=== PATIENT | male | born 1960 | race Caucasian/White ===

== ENCOUNTER → 2016-09-05 | Outpatient (CLI) | payer OTHER ==
[2016-09-05 15:22] LABS: Aty Lym Flag Moderate; CH 30.2; CHCM 31.4; HCT 44.9 % (39.0-53.0); HDW 2.49; HGB 13.8 gm/dL (13.0-17.5); Hypochromasia Slight; MCH 29.9 pg (25.0-35.0); MCHC 30.8 g/dL (31.0-37.0); Mean Platelet Volume 8.4; RBC 4.63 m/uL (4.30-5.90); RDW 14.5 % (11.5-15.5); WBC 6.3 k/uL (3.8-10.6); WBC (Perox) 6.32
[2016-09-05 15:24] LABS: Appearance,Urine Clear (Clear); Bacteria,Urine Rare /hpf; Bilirubin,Urine Negative (Negative); Glucose,Urine (UA) Negative (Negative); Ketones,Urine Negative (Negative); Leukocyte Esterase,Urine Negative (Negative); Mucus,Urine Many /hpf; Nitrite,Urine Negative (Negative); PH, Urine 5.5 (5.0-8.0); Particle Count 8917; Protein,Urine 1+ (Negative); RBC,Urine 1 /hpf (0-5); Specific Gravity,Urine 1.018 (1.001-1.035); UA Billing (MACRO vs. MICRO) MICRO; WBC,Urine 2 /hpf (0-5)
[2016-09-05 16:49] LABS: Add Differential Manual Differential
[2016-09-05 16:51] LABS: Large Platelets Present; Manual Review Performed; Nucleated Red Blood Cells 0 /100 WBC (0-0)
[2016-09-05 16:52] LABS: Polychromasia Present; Toxic Granulation Present
[2016-09-05 16:56] LABS: Total Cells Counted 200
[2016-09-06 07:52] LABS: Mis test requested (Non-blood) TP Urine Random
== END ==
LOC: LABWHC1 14:45
PROVIDERS: ATTEND Internal Medicine
DX: N39.0 Urinary tract infection, site not specified (principal); J11.1 Influenza due to unidentified influenza virus with other respiratory manifestations
CPT/HCPCS: 36415; 81001; 82570; 84153; 84156; 85025; 87086; 87502

== ENCOUNTER → 2016-09-09 | Outpatient (CLI) | payer OTHER ==
[2016-09-09 09:56] LABS: INR 1.1 (<1.1); Partial Thromboplastin Time 24.4 sec (22.0-30.0); Prothrombin Time 11.5 sec (9.0-12.0)
[2016-09-09 10:07] LABS: Aty Lym Flag Slight; CH 29.6; CHCM 31.4; HCT 47.6 % (39.0-53.0); HDW 2.37; HGB 14.8 gm/dL (13.0-17.5); MCH 29.5 pg (25.0-35.0); MCHC 31.1 g/dL (31.0-37.0); MCV 94.8 fL (80.0-100.0); RBC 5.02 m/uL (4.30-5.90); RDW 14.1 % (11.5-15.5); WBC 7.2 k/uL (3.8-10.6); WBC (Perox) 7.22
[2016-09-09 10:24] LABS: Bilirubin, Delta 0.5 mg/dL (0.0-0.2); Total Protein 6.6 g/dL (6.3-8.2)
[2016-09-09 11:54] LABS: Add Differential Manual Differential
[2016-09-09 11:56] LABS: Nucleated Red Blood Cells 0 /100 WBC (0-0); Total Cells Counted 100
== END | disposition home or self-care (01) ==
LOC: LABWHC1 08:50
PROVIDERS: ATTEND Internal Medicine
DX: K75.9 Inflammatory liver disease, unspecified (principal); D69.6 Thrombocytopenia, unspecified; R79.89 Other specified abnormal findings of blood chemistry
CPT/HCPCS: 36415; 80076; 82977; 85025; 85610; 85730

== ENCOUNTER → 2021-09-13 | Outpatient (CLI) | payer OTHER ==
--- NOTE | 2021-09-14 07:01 | MR ---
EXAMINATION TYPE: MR lumbar spine wo con DATE OF EXAM: 09/13/2021 COMPARISON: Outside MR spine MRI April 29, 2017 HISTORY: Low back pain for years. TECHNIQUE: Multiplanar, multisequence imaging of the lumbar spine is performed without IV contrast. FINDINGS: Sagittal images of the lumbar spine show vertebral body heights and alignment to remain sat isfactory. Multilevel disc desiccation redemonstrated. Advanced disc space narrowing L4-L5 level wit h vacuum disc phenomenon again seen. Moderate to advanced disc space narrowing L5-S1 level with vacuu m disc phenomenon redemonstrated The conus medullaris is normal in position and signal ending at T12- L1 level. 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 Moderat e multilevel anterior spurring with heterogeneity again seen. Axial images at T12-L1 level redemonstrate mild to moderate broad disc bulge mildly effacing the ante rior thecal sac, patent bilateral neural foramina. Axial images at L1-L2 level redemonstrate mild broad disc bulge minimally effacing the anterior theca l sac. Axial images at L2-L3 level show mild to moderate broad disc bulge with left foraminal disc protrusio n component. There is mild effacement of the anterior thecal sac. There is mild left greater than rig ht anterior inferior neural foraminal narrowing redemonstrated. Axial images at the L3-L4 level demonstrates mild facet degenerative changes bilaterally. There is mi [id number] broad disc bulge with left foraminal disc protrusion component redemonstrated. There i s mild to moderate left greater than right anterior inferior neural foraminal narrowing again seen. N o significant change from prior. Axial images at the L4-L5 level show moderate to advanced broad disc bulge with left lateral disc pro trusion component. There is effacement of the anterior thecal sac. Mild facet arthropathy bilaterally . There is mild to moderate left greater than right anterior inferior neural foraminal narrowing rede monstrated. Axial images at the L5-S1 level redemonstrated mild facet arthropathy bilaterally. There is focal umer tral disc protrusion. There is moderate bilateral neural foraminal narrowing encroaching along the in ferior aspect of the bilateral L5 nerves in the foramen seen on sagittal image 17 on the right and 6 on the left. This has a similar appearance to prior study. IMPRESSION: Multilevel degenerative changes in lumbar spine as detailed above. Encroachment on forami nal L5 nerve bilaterally at L5-S1 level is again seen. No significant change or degenerative progress ion from prior outside MRI.
== END | disposition home or self-care (01) ==
LOC: RADMRIMAIN 15:25
PROVIDERS: ATTEND Psychiatry & Neurology Neurology
DX: M47.816 Spondylosis without myelopathy or radiculopathy, lumbar region (principal); M51.26 Other intervertebral disc displacement, lumbar region
CPT/HCPCS: 72148

== ENCOUNTER 2021-10-12 12:17 | Emergency (ER) | payer OTHER ==
[2021-10-12 12:40] VITALS: PULSE 61; RESP 18; TEMP 98.1
[2021-10-12] MEDS ORDERED: BEBTELOVIMAB (EUA) 175 MG/2 ML VIAL IV ONE (13:15)
--- NOTE | 2021-10-12 13:22 | ED ---
General Adult HPI - General Chief complaint: Recheck/Abnormal Lab/Rx Stated complaint: covid+/wants antibodies Time Seen by Provider: 10/12/21 12:42 Source: patient, RN notes reviewed, old records reviewed Mode of arrival: wheelchair Limitations: no limitations - History of Present Illness Initial comments: 61-year-old male presenting for evaluation of cough and cold symptoms. Patient tested positive for coronavirus today. He has had about 6 days of symptoms including mild stomach upset, cough congestion. His has similar symptoms and also tested positive for coronavirus. He denies significant dyspnea. He's had a poor appetite. - Related Data Home Medications Medication Instructions Recorded Confirmed Metoprolol Tartrate [Lopressor] 25 mg PO BID 08/31/14 09/02/14 Allergies Allergy/AdvReac Type Severity Reaction Status Date / Time No Known Allergies Allergy Verified 10/12/21 12:40 Review of Systems ROS Statement: Those systems with pertinent positive or pertinent negative responses have been documented in the HPI. ROS Other: All systems not noted in ROS Statement are negative. Past Medical History Past Medical History: Hypertension History of Any Multi-Drug Resistant Organisms: None Reported Past Surgical History: Orthopedic Surgery Additional Past Surgical History / Comment(s): leg surgery Past Psychological History: Anxiety Smoking Status: Current every day smoker Past Alcohol Use History: Abuse, Daily Past Drug Use History: Marijuana General Exam Limitations: no limitations General appearance: alert, in no apparent distress Head exam: Present: atraumatic, normocephalic Eye exam: Present: normal appearance, PERRL ENT exam: Present: normal exam Neck exam: Present: normal inspection. Absent: tenderness, meningismus Respiratory exam: Present: normal lung sounds bilaterally. Absent: respiratory distress, wheezes, rales, rhonchi Cardiovascular Exam: Present: regular rate, normal rhythm GI/Abdominal exam: Present: soft. Absent: distended, tenderness, guarding Extremities exam: Present: normal inspection, normal capillary refill. Absent: pedal edema, calf tenderness Neurological exam: Present: alert, oriented X3, CN II-XII intact. Absent: motor sensory deficit Psychiatric exam: Present: normal affect, normal mood Skin exam: Present: warm, dry, intact. Absent: cyanosis, diaphoretic Course Vital Signs 10/12/21 12:35 Temperature 98.1 F Pulse Rate 61 Respiratory 18 Rate Blood Pressure 98/53 O2 Sat by Pulse 99 Oximetry Medical Decision Making - Medical Decision Making 61-year-old male with coronavirus. To previous vaccines. He is well-appearing with stable vitals. No respiratory distress. He does meet for monoclonal antibody infusion. These are administered in the emergency department. Patient will take vitamin C, vitamin D, zinc. He will follow with his primary care physician. Disposition Clinical Impression: COVID-19 Disposition: HOME SELF-CARE Condition: Fair Instructions (If sedation given, give patient instructions): COVID-19 (Coronavirus Disease 2019) (ED) Is patient prescribed a controlled substance at d/c from ED?: No Referrals: Teo Garbiay MD [Primary Care Provider] - 1-2 days Time of Disposition: 14:10
[2021-10-12 14:40] VITALS: BP 126/74
== END 2021-10-12 15:50 | disposition home or self-care (01) ==
LOC: EC 12:17
DX: U07.1 COVID-19 (principal); F17.200 Nicotine dependence, unspecified, uncomplicated; F12.90 Cannabis use, unspecified, uncomplicated; Z79.899 Other long term (current) drug therapy
CPT/HCPCS: 87635; 99283; Q0222

== ENCOUNTER → 2022-03-18 | Outpatient (CLI) | payer OTHER ==
[2022-03-18 12:57] VITALS: BP 114/72; PULSE 73; RESP 18; TEMP 98.3
--- NOTE | 2022-03-18 14:23 | P.PAINPG ---
PQRS Measure Charge Sheet Comment: HISTORY OF PRESENT ILLNESS: 61 yr old male as a referral from [facility] presents today w severe and chronic LBP secondary to DDD, spondylosis and facet arthropathy without myelopathy for evaluation. Pt states his pain level is currently at 8/10 in intensity, constant, localized in lower lumbar spine, achy in character w radiation towards L glute. Pt states pain is provoked with standing/ walking for periods of 30 min or more, bending & lifting. Pain is alleviated w PT in 3 weeks currently which reduces pain intermittently, heating pad use, meds (Cull[place] 10/325mg), PMH: Hypertension, Anxiety PSH: Hip & Leg Surgery, Cardiac Cath (2014) SH: Daily tobacco use, +Cannabis use, Hx of ETOH abuse. FH: Non contributory All: NKDA Meds: See list REVIEW OF ORGAN SYSTEMS: CONSTITUTIONAL: No fevers or chills. No recent weight loss. NEUROLOGICAL: + numbness and tingling along the distal extremities. No seizure disorders or headaches. MUSCULOSKELETAL: + pain PSYCHIATRIC: Denies current depression or suicidal thought s. Physical Examinations : Constitutional : Cooperative , not in acute distress . Neurologic : Cranial nerve II to XII intact. No focal neurological deficits. Psychiatric : alert & oriented x 3. Matching mood & appropriate affect. Judgment & insight intact. Musculoskeletal : Cervical Spine Motor strength in the deltoid and biceps: Normal right side. Normal Left side Motor strength biceps and the wrist extensors: Normal right side . Normal left side Motor strength in the triceps muscle: Normal right side. Normal left side Deep tendon reflexes: Normal at the biceps. Normal at Brachioradialis. Normal at triceps Vertebral body tenderness to deep palpation over Cervical facet loading test: positive bilaterally Spurling test: positive bilaterally Neck distraction test: positive bilaterally Jose sign: positive bilaterally Lumbar spine Motor strength lower extremities ,thigh and legs 5/5 Right side , 5/5 Left side Deep tendon reflexes : Normal Knee Jerk. Normal Ankle Jerk Vertebral body tenderness over L5 Lumbar facet Loading Test: positive Right / positive Left Range of motion of the lumbar spine Flexion 30 degrees, extension 10 degrees Straight Leg Raise test: Left/ Right positive at degree Luis Manuel test: positive right / positive left. Severe tenderness over the Sacroiliac joint on the Right / Left sides Gaenslen test: positive bilaterally Seated flexion test: positive bilaterally. Sacral spine : Severe tenderness over the Sacroiliac joint: right side / left side Range of motion: Flexion of the lumbar spine <60 degrees Range of motion: Extension of the lumbar spine <20 degrees Gaenslen's Test positive Rafael's Test positive Luis Manuel test: positive right side / left side Thigh Thrust Test Sacral Thrust Test Imaging: MRI without contrast of the lumbar spine from 09/13/21 reviewed Assessment/ Plan : Lumbar DDD, Lumbar spondylosis Recommendation of RAMIREZ L5-S1. May need a series, up to 3 within a 6 mo period, for optimal pain relief. Risks, benefits of procedure discussed and patient verbalized understanding. Denies aspirin or anti- coagulant use or medical history of diabetes. Protocol for discontinuation/ continuation of medications lana procedure discussed. All questions answered. I have spent greater than 30 minutes on patient care today. Dr More was available by phone for the evaluation of this patient. The time was used to review the medical records including relevant urine studies and Prescription history (MAPs), review of the available imaging, evaluation and examination of the patient, coordination of care with the medical staff and if applicable referring physicians, as well as creation of the medical record Home Medications: Ambulatory Orders Metoprolol Tartrate [Lopressor] 25 mg PO BID 08/31/14 Controlled Substance Measures - Controlled Substance Measures Is patient prescribed a controlled substance at discharge?: No
== END ==
LOC: PNWHC3 11:57
PROVIDERS: ATTEND Specialist
DX: M51.36 Other intervertebral disc degeneration, lumbar region (principal); M47.816 Spondylosis without myelopathy or radiculopathy, lumbar region; I10 Essential (primary) hypertension; F41.9 Anxiety disorder, unspecified; F17.200 Nicotine dependence, unspecified, uncomplicated
CPT/HCPCS: 99211

== ENCOUNTER 2022-04-18 12:50 | Day surgery (SDC) | payer OTHER ==
[2022-04-17 09:29] VITALS: BMI 29.2
[2022-04-18 13:45] VITALS: RESP 18; TEMP 98.6
[2022-04-18] MEDS ORDERED: LACTATED RINGERS 1,000 ML IV ONE (13:45)
[2022-04-18] MEDS ORDERED: IV FLUID CONTINUATION 1,000 ML IV ONE (13:45)
[2022-04-18] MEDS ORDERED: MIDAZOLAM 2 MG/2 ML VIAL ONE (13:47)
[2022-04-18] MEDS ORDERED: methylPREDNISolone ACETATE 80 MG/ML 1 ML VIAL ONE (13:47)
[2022-04-18] MEDS ORDERED: IOPAMIDOL M200 10 ML VIAL ONE (13:47)
[2022-04-18] MEDS ORDERED: fentaNYL (PF) 50 MCG/ML 2 ML AMP ONE (13:47)
[2022-04-18] MEDS ORDERED: LIDOCAINE 1% (10MG/ML) FOR IV START INTRADERMA PRN (13:55)
--- NOTE | 2022-04-18 13:56 | P.PCN ---
Date of Procedure: 04/18/22 Procedure(s) Performed: PREOPERATIVE DIAGNOSIS: 1- Lumbar Degenerative Disc Diseases 2-Lumbar spondylosis with Facet arthropathy without myelopath POSTOPERATIVE DIAGNOSIS: Same as preop diagnosis. PROCEDURE 1. Lumbar epidural steroid injection under fluoroscopic guidance at the L5-S1 level. (Fluoroscopy imaging was available in radiology department) 2. Lumbar epidurogram. ANESTHESIA: moderate sedation with intravenous Versed 2 mg ,and fentanyle 100 Mcg Sedation start time : 13:49 Sedation end time : 13:54 EBL: Minimal PROCEDURE INDICATION: The patient with low back pain and radiculitis symptoms unresponsive to conservative treatment. Fluoroscopy was used to optimize visualization of the needle placement and to maximize safety. PROCEDURE DESCRIPTION / TECHNIQUE: The patient was seen and identified in the preoperative area. Risks, benefits, complications including but not limited to infections ,bleeding ,allergic reaction to the medications ,nerve damage and not complete pain releife , and a lternatives were discussed with the patient. The patient agreed to proceed with the procedure and signed the consent. IV was started, and vital signs were stable. Patient was taken to the OR and time out was completed. The patient was placed in the prone position on procedure table and a pillow was placed under the abdomen to reduce lumbar lordosis. The lumbosacral area was prepped and draped in the usual sterile fashion.ere closely monitored during the procedure. Conscious sedation was used during the procedure to decrease patients anxiety. Vital signs was monitered during the entire procedure. Using anterior-posterior fluoroscopy, the L5-S1 interlaminar space was identified and the skin over this site was marked and then infiltrated with 1% lidocaine subcutaneously. Subsequently, a 20-gauge Tuohy epidural needle was inserted and advanced toward the epidural space using the ``Loss of resistance technique and guided by AP and lateral fluoroscopy. The correct needle position in the epidural space was verified with the injection of 2 mL of the water soluble contrast dye Isovue 200 contrast and observing an excellent epidurogram with the epidural spread of the dye, after negative aspiration for blood and CSF and in the absence of paresthesias. Again after negative aspiration, a 6 ml mixture containing 80 mg of Depo-medrol ( Preservetive Free ), and 2 ml of preservative free Normal Saline, and 2 ml of preservative free lidocaine 1% solution was injected and a washout of epidurogram was seen. Needle was withdrawn intact, skin was cleansed, and bandages were applied. COMPLICATIONS: None DISPOSITION / PLANS: The patient was placed in a supine position and transferred to the recovery area in a stable condition for observation. There was no evidence of lower extremity motor or sensory deficit after the procedure. Patient was discharged from the recovery room after meeting discharge criteria. Home discharge instructions were given to the patient by the staff. The patient was reexamined prior to discharge. The patient will schedule a follow up in the clinic in 2-4 weeks.
[2022-04-18] MEDS: LACTATED RINGERS 1,000 ML IV SCH ×2 (14:03→14:25)
[2022-04-18 14:18] VITALS: BP 143/83; PULSE 60
--- NOTE | 2022-04-18 16:18 | FL ---
EXAMINATION TYPE: FL guided pain mgmt statistic DATE OF EXAM: 04/18/2022 FLUOROSCOPY Fluoroscopy time of 1 seconds was used during lumbar epidural steroid injection. 1 image/s document/ s the procedure.
== END 2022-04-18 14:35 | disposition home or self-care (01) ==
LOC: ORPAIN 12:50
PROVIDERS: ATTEND Specialist
DX: M51.16 Intervertebral disc disorders with radiculopathy, lumbar region (principal); M47.26 Other spondylosis with radiculopathy, lumbar region
CPT/HCPCS: 62323; J2250; J1040; J3010; Q9966

== ENCOUNTER → 2022-05-09 | Outpatient (CLI) | payer OTHER ==
[2022-05-09 13:07] VITALS: BP 103/68; PULSE 60; RESP 18; TEMP 98.6
--- NOTE | 2022-05-09 14:24 | P.PAINPG ---
PQRS Measure Charge Sheet Comment: A 61 yr old male with a history of severe and chronic low back pain secondary to lumbar DDD and spondylosis with facet arthropathy without myelopathy presents today for evaluation s/p RAMIREZ L5-S1. Pt states he experienced 80% pain relief x 1 wks s/p procedure. Pain level is currently at 8 /10 in intensity, constant, localized in the lower lumbar spine, pressure in character without radiation of pain. Pain is provoked by standing/ walking for periods of 5 min or more. Pain is alleviated with PT Mar 2022,. home exercise regimen, meds (Claiborne from Dr Rosenberg), heat, repositioning and rest. Interventional pain procedures completed include RAMIREZ L5-S1 Patient is currently on Claiborne prn Patient denies any side effects of the medication(s), denies excessive drowsiness or sleepiness, denies suicidal ideation and reports that the current pain medication is helping to control the pain and improve activities of daily living. Patient denies any motor or sensory deficits. Patient denies any fever or night sweats, denies any change in the bowel movements or urination. Physical Examination: -Constitutional: Cooperative. Not in acute distress . - Neurologic: Cranial nerve II to XII intact. No focal neurological deficits. - Psychatric: Alert & oriented x 3. Matching mood & appropriate affect. Judgment and insight intact. - Musculoskeletal: Cervical spine: Muscle bulk/ tone/ strength in the bilateral upper extremities normal Vertebral body tenderness to palpation over Spurling test positive Distraction test positive Facet loading test positive Thoracic spine Muscle bulk / tone/ strength in the bilateral paraspinal muscles normal Vertebral body tender to palpation over Facet loading test positive Lumbar spine: Motor bulk/ tone/ strength lower extremities , thigh and legs : 5/5 Deep tendon reflexes : Normal Knee Jerk. Normal Ankle Jerk . Vertebral body tenderness to palpation over Lumbar Facet Loading Test positive jump reflex over BL L4-L5, L5-S1 facets Straight Leg Raise: positive at 30 degrees right side/ left side Gaenslen's Test positive Sacral spine : Severe tenderness over the Sacroiliac joint: right side / left side Range of motion: Flexion of the lumbar spine <60 degrees Range of motion: Extension of the lumbar spine <20 degrees Gaenslen's Test positive Luis Manuel test: positive right side / left side Thigh Thrust Test Sacral Thrust Test Assessment and plan: Chronic low back pain secondary to lumbar degenerative disc disease, spondylosis with facet arthropathy without myelopathy Recommendation of BL MBB L4-L5, L5-S1 #1. May need a series of injections, up until RFA, for optimal pain relief. Risks, benefits of procedure discussed and pt verbalized understanding. Denies anticoagulant use or medical history of diabetes. All patient questions answered I have spent less than 30 minutes on patient care today. Dr More was available by phone for the evaluation of this patient. The time was used to review the medical records including relevant urine studies and Prescription history (MAPs), review of the available imaging, evaluation and examination of the patient, coordination of care with the medical staff and if applicable referring physicians, as well as creation of the medical record PQRS Narrative: Hx Alcohol Use (MH) Yes Home Medications: Ambulatory Orders Citalopram Hydrobromide [Citalopram HBr] 40 mg PO HS 04/17/22 HYDROcodone/APAP 10-325MG [Claiborne 10-325] 1 tab PO TID 04/17/22 Metoprolol Tartrate [Lopressor] 50 mg PO BID 04/17/22 amLODIPine 10 mg PO HS 04/17/22 hydrALAZINE HCL 25 mg PO BID 04/17/22 traZODone HCL 150 mg PO HS 04/17/22 Cholecalciferol [Vitamin D3 (25 Mcg = 1000 Iu)] 25 mcg PO DAILY 04/18/22 Losartan/Hydrochlorothiazide [Losartan-Hctz 100-12.5 mg Tab] 1 tab PO DAILY 04/18/22 Controlled Substance Measures - Controlled Substance Measures Is patient prescribed a controlled substance at discharge?: No
== END ==
LOC: PNWHC3 12:25
PROVIDERS: ATTEND Specialist
DX: M47.816 Spondylosis without myelopathy or radiculopathy, lumbar region (principal); M51.36 Other intervertebral disc degeneration, lumbar region; G89.29 Other chronic pain; F17.200 Nicotine dependence, unspecified, uncomplicated
CPT/HCPCS: 99211

== ENCOUNTER 2022-06-21 11:46 | Day surgery (SDC) | payer OTHER ==
[~2022-06-21 11:46] MED LIST: LACTATED RINGERS 1,000 ML IV SCH
[2022-06-21 13:18] VITALS: TEMP 97.8
[2022-06-21] MEDS ORDERED: ROPIVACAINE 5 MG/ML 20 ML AMPULE ONE (13:42)
[2022-06-21] MEDS ORDERED: TRIAMCINOLONE ACETONIDE 40 MG/ML 1 ML VIAL ONE (13:42)
[2022-06-21] MEDS ORDERED: fentaNYL (PF) 50 MCG/ML 2 ML AMP ONE (13:43)
[2022-06-21] MEDS ORDERED: MIDAZOLAM 2 MG/2 ML VIAL ONE (13:43)
[2022-06-21] MEDS ORDERED: IV FLUID CONTINUATION 1,000 ML IV ONE (14:07)
--- NOTE | 2022-06-21 14:08 | P.PCN ---
Date of Procedure: 06/21/22 Surgeon: Effie Smallwood Description of Procedure: Date of Procedure: 06/21/22 Surgeon: Effie Smallwood Pathology: none sent Condition: stable Disposition: PACU Description of Procedure: PREOPERATIVE DIAGNOSIS : 1- Lumbar spondylosis with Facet Arthropathy without myelopathy . 2- Lumber degenerative disc disease POSTOPERATIVE DIAGNOSIS: 1- Lumbar spondylosis with Facet Arthropathy without myelopathy . 2- Lumber degenerative disc disease PROCEDURE: Diagnostic bilateral L4 -5 , and L5-S1 medial branch block under fluoroscopy Physician: Effie Smallwood MD ANESTHESIA: Local with 1% lidocaine; IV moderate conscious sedation with Versed 2 mg by the anesthesia Department . EBL: Negligible COMPLICATION: None. PROCEDURE INDICATION: Chronic low back pain secondary to Facet arthropathy unresponsive to conservative treatment. PROCEDURE DESCRIPTION: the patient was seen and identified in the preop holding area , risks and benefits and possible complications of the procedure and alternatives were discussed with the patient, and the patient agreed to proceed with the procedure and signed the consent. IV was started and vital signs monitored during the procedure and fluoroscopy was used to maximize the benefit and accuracy of the needle placement, sedation was given to decrease patient anxiety, patient was taken to the procedure room and placed in prone position vital signs monitored. The patient was brought into the procedure room and placed in prone position. Skin was prepped with Chloraprep and draped in a sterile manner. Lidocaine 1% was used to numb the skin up at the target points that were chosen as follows: at the L5-S1 level which corresponds to the dorsal ramus of L5 the target points were at the superior medial aspect of the sacral ala on each side of the spine on the AP view of fluoroscopy, and for the L3 and L4 medial branches the target points were the connection between the transverse process and the superior articular process of L4 and L5 respectively on the oblique views of fluoroscopy. I used 22-gauge 3.5 inch Quincke spinal needles for this procedure and after contacting bone at the target points mentioned above I injected 1 mL of a mix ture of Kenalog 40 mg +5 MLS of Ropivacaine 0.5% PF . Patient tolerated procedure well. At the end of the procedure the needles removed and a bandage applied after the skin was cleaned the cleaning solution. patient was then taken to the recovery room in stable condition and monitored in the recovery room for 20-30 minutes and discharged home in stable condition after discharge criteria met . A copy of the needle placement picture was saved to the C-arm machine. Sedation time: Sedation was provided by the anesthesia Department
--- NOTE | 2022-06-21 14:21 | FL ---
Intraoperative/procedural fluoroscopic services were provided for bilateral lumbar facet block. Total fluoroscopy time is 16 seconds with a total of or submitted images to PACS. Please see the operative note for further details.
[2022-06-21 14:26] VITALS: BP 137/85; PULSE 62; RESP 16
== END 2022-06-21 14:39 | disposition home or self-care (01) ==
LOC: ORPAIN 11:46
PROVIDERS: ATTEND Anesthesiology
DX: M47.816 Spondylosis without myelopathy or radiculopathy, lumbar region (principal); M51.36 Other intervertebral disc degeneration, lumbar region; G89.29 Other chronic pain; I10 Essential (primary) hypertension; F17.200 Nicotine dependence, unspecified, uncomplicated; F12.20 Cannabis dependence, uncomplicated; F41.9 Anxiety disorder, unspecified; Z79.83 Long term (current) use of bisphosphonates; Z79.891 Long term (current) use of opiate analgesic; Z79.899 Other long term (current) drug therapy
CPT/HCPCS: 64493; 64494; J2250; J3301; J3010; J2795

== ENCOUNTER 2022-09-20 10:47 | Day surgery (SDC) | payer OTHER ==
[2022-09-19 09:05] VITALS: BMI 30.9
[~2022-09-20 10:47] MED LIST changes: +LIDOCAINE 1% (10MG/ML) FOR IV START INTRADERMA PRN
[2022-09-20 11:31] VITALS: TEMP 98
[2022-09-20] MEDS ORDERED: MIDAZOLAM 2 MG/2 ML VIAL ONE (12:06)
[2022-09-20] MEDS ORDERED: fentaNYL (PF) 50 MCG/ML 2 ML AMP ONE (12:06)
[2022-09-20] MEDS ORDERED: ROPIVACAINE 5 MG/ML 20 ML AMPULE ONE (12:06)
[2022-09-20] MEDS ORDERED: methylPREDNISolone ACETATE 40 MG/ML 1 ML VIAL ONE (12:06)
--- NOTE | 2022-09-20 12:33 | P.PCN ---
Date of Procedure: 09/20/22 Procedure(s) Performed: PREOPERATIVE DIAGNOSIS: 1-Lumbar Spondylosis with Facet Arthropathy without myelopathy. 2- Lumber degenerative disc disease. POSTOPERATIVE DIAGNOSIS: 1- Lumbar Spondylosis with Facet Arthropathy without myelopathy. 2- Lumber degenerative disc disease. PROCEDURES : Bilateral Radiofrequency thermocoagulation, L3 , L4 , and L5 medial branch, with fluoroscopic guidance (fluoroscopy images available in the radiology department) ( to denervate the facet joint at bilateral L4-5 ,and L5-S1 levels ). ANESTHESIA: Monitored anesthesia care as per anesthesia department . EBL: Minimal PROCEDURE INDICATION: The patient with low back pain secondary to lumbar facet arthropathy who had more than 50% relief of her pain with previous diagnostic lumbar medial branch block with bupivacaine. PROCEDURE DESCRIPTION / TECHNIQUE: The patient was seen and identified in the preoperative area. Risks, benefits, complications, including but not limited to risk of infection ,bleeding , allergic reactions to the medications and no complete pain releife , and alternatives were discussed with the patient, the patient agreed to proceed with the procedure and signed the consent. IV was started. Vital signs remained stable throughout the procedure. Patient was taken to the OR and time out was completed. The patient was placed in the prone position on the procedure table. The lumber area was prepped and draped in the usual sterile fashion. . Vital signs were closely monitored during the procedure .IV sedation was used during the procedure to decrease patients anxiety. Using AP and then oblique fluoroscopy, the ``eye of the Chaitanya dog cor responding to the connection between the superior and transverse articular processes of right L3, L4, and L5 were identified, marked, and localized with 1% lidocaine. Subsequently, a [id number] radiofrequency cannula with a 10- mm active tip was advanced guided by fluoroscopy to each of the``eyes of the Chaitanya dog at right L3, L4, and L5. Each site then underwent sensory testing at 50 Hz and 0 to 1 volt and motor testing at 2.5 Hz and 0 to 3 volt with local stimulation, but no radicular symptoms down the legs. Thereafter each sites underwent radiofrequency thermocoagulation at 80 degrees celsius for 90 seconds after injecting 0.5 ml of PF Ropivacaine 1ml, then after the thermocoagulation done , 1 ml of the block solution containing Depo-Medrol 20 mg and 3 ml of Ropivacaine 0.5% was injected at the right L3 , L4 , and L5 , levels after negative aspiration of CSF and blood and with no paresthesias. Cannulas were retracted while injecting lidocaine 1% until the needle is out. The same procedure was repeated at the level of Left L3, L4, and L5 levels. At the end of the procedure, the skin was cleansed and bandages were applied. COMPLICATIONS: No acute complications. DISPOSITION / PLANS: The patient was placed in a supine position and transferred to the recovery area in a stable condition for observation and was discharged from the recovery room after meeting discharge criteria. Home discharge instructions given to the patient by the staff. The patient was reexamined prior to discharge. The patient will schedule a follow up in the clinic in 2-4 weeks.
--- NOTE | 2022-09-20 12:40 | FL ---
Fluoroscopy History: Lumbar Rad Freq 19sec fluoro time...6 images to PACS [id number] DAP
[2022-09-20 12:45] VITALS: RESP 14
[2022-09-20] MEDS ORDERED: IV FLUID CONTINUATION 1,000 ML IV ONE (12:46)
[2022-09-20 12:56] VITALS: BP 125/78; PULSE 62
== END 2022-09-20 13:39 | disposition home or self-care (01) ==
LOC: ORPAIN 10:47
PROVIDERS: ATTEND Specialist
DX: M51.36 Other intervertebral disc degeneration, lumbar region (principal); M47.816 Spondylosis without myelopathy or radiculopathy, lumbar region; I10 Essential (primary) hypertension; F17.200 Nicotine dependence, unspecified, uncomplicated; F12.90 Cannabis use, unspecified, uncomplicated; G89.29 Other chronic pain; Z79.899 Other long term (current) drug therapy
CPT/HCPCS: 64635; 64636; J2250; J1030; J3010; J2795

== ENCOUNTER → 2022-10-09 | Outpatient (CLI) | payer OTHER ==
[2022-10-09 11:58] VITALS: BP 109/72; PULSE 71; RESP 18; TEMP 98
--- NOTE | 2022-10-09 14:58 | P.PAINPG ---
PQRS Measure Charge Sheet Comment: A 62 yr old male with a history of severe and chronic LBP secondary to lumbar DDD and spondylosis with facet arthropathy without myelopathy presents today for evaluation s/p BL RFA L4-L5, L5-S1. Pt states he experienced 65% pain relief s/p procedure. Pain level is provoked at 8 /10 in intensity, constant, localized in the mid lumbar spine, dull in character w/o shooting pain. Pain is provoked by standing/ walking for periods of 30 min or more. Pain is alleviated with heat, meds, use of a walker for ambulatory assistance, repositioning and rest. Interventional pain procedures completed include BL RFA L3-L5 (Aug 2022), LESIs Patient is currently on [place] Patient denies any side effects of the medication(s), denies excessive drowsiness or sleepiness, denies suicidal ideation and reports that the current pain medication is helping to control the pain and improve activities of daily living. Patient denies any motor or sensory deficits. Patient denies any fever or night sweats, denies any change in the bowel movements or urination. Physical Examination: -Constitutional: Cooperative. Not in acute distress . - Neurologic: Cranial nerve II to XII intact. No focal neurological deficits. - Psychatric: Alert & oriented x 3. Matching mood & appropriate affect. Judgment and insight intact. - Musculoskeletal: Cervical spine: Muscle bulk/ tone/ strength in the bilateral upper extremities normal Vertebral body tenderness to palpation over Spurling test positive Distraction test positive Facet loading test positive TTP Thoracic spine Muscle bulk / tone/ strength in the bilateral paraspinal muscles normal Vertebral body tender to palpation over Facet loading test positive TTP Lumbar spine: Motor bulk/ tone/ strength lower extremities , thigh and legs : 5/5 Deep tendon reflexes : Normal Knee Jerk. Normal Ankle Jerk . Vertebral body tenderness to palpation over Lumbar Facet Loading Test positive TTP BL L2-L,3 L4-L4 facets Straight Leg Raise: positive at 30 degrees right side/ left side Gaenslen's Test positive Sacral spine : Severe tenderness over the Sacroiliac joint: right side / left side Range of motion: Flexion of the lumbar spine <60 degrees Range of motion: Extension of the lumbar spine <20 degrees Gaenslen's Test positive right side / left side Luis Manuel test: positive right side / left side Thigh Thrust Test positive right side / left side Sacral Thrust Test positive right side / left side Assessment and plan: Chronic LBP secondary to lumbar DDD, spondylosis with facet arthropathy without myelopathy Recommendation of BL facet block of the medial branches L2-L3, L3-L4 #1. May need a series of injections, up until RFA, for optimal pain relief. Risks, benefits of procedure discussed and pt verbalized understanding. Admits to anticoagulant use or medical history of diabetes. Protocol for discontinuation/ continuation of medications lana procedure discussed. All questions answered. I have spent less than 30 minutes on patient care today. Dr More was available by phone for the evaluation of this patient. The time was used to review the medical records including relevant urine studies and Prescription history (MAPs), review of the available imaging, evaluation and examination of the patient, coordination of care with the medical staff and if applicable referring physicians, as well as creation of the medical record PQRS Narrative: Hx Alcohol Use (MH) Yes Home Medications: Ambulatory Orders Citalopram Hydrobromide [Citalopram HBr] 40 mg PO HS 04/17/22 HYDROcodone/APAP 10-325MG [[place] 10-325] 1 tab PO TID 04/17/22 Metoprolol Tartrate [Lopressor] 50 mg PO BID 04/17/22 amLODIPine 10 mg PO HS 04/17/22 hydrALAZINE HCL 25 mg PO BID 04/17/22 traZODone HCL 150 mg PO HS 04/17/22 Losartan/Hydrochlorothiazide [Losartan-Hctz 100-12.5 mg Tab] 1 tab PO DAILY 1 Tamsulosin HCl [Flomax] 0.4 mg PO HS 09/19/22 Controlled Substance Measures - Controlled Substance Measures Is patient prescribed a controlled substance at discharge?: No
== END ==
LOC: PNWHC3 11:10
PROVIDERS: ATTEND Specialist
DX: M51.36 Other intervertebral disc degeneration, lumbar region (principal); M47.816 Spondylosis without myelopathy or radiculopathy, lumbar region; G89.29 Other chronic pain; F17.200 Nicotine dependence, unspecified, uncomplicated
CPT/HCPCS: 99211

== ENCOUNTER → 2023-02-03 | Outpatient (CLI) | payer OTHER ==
--- NOTE | 2023-02-04 19:00 | MR ---
EXAMINATION TYPE: MR lumbar spine wo con DATE OF EXAM: 02/03/2023 4:54 PM COMPARISON: 01/22/2023 09/13/2021. CLINICAL INDICATION: Male, 62 years old with history of M51.36; PHH, Low back pain TECHNIQUE: Multi planar, multi sequence imaging was performed utilizing: T1-weighted, T2-weighted, a nd turbo inversion recovery imaging of the lumbar spine. IV Contrast: None. FINDINGS: Alignment: The lumbar vertebral bodies have preserved heights and alignment. Cord: The conus medullaris and the distal spinal cord appear unremarkable with regards to their signa l intensity and morphology. Bones/Discs: Multilevel degeneration changes with disc space narrowing, osteophytes, Schmorl's nodes and vacuum disc phenomenon. T12-L1: No evidence of significant spinal canal stenosis or neural foraminal stenosis. L1-L2: Disc bulge and facet joint arthropathy result in mild spinal canal and mild bilateral neural f oraminal stenosis. L2-L3: Disc bulge and facet joint arthropathy result in mild spinal canal and mild bilateral neural f oraminal stenosis. L3-L4: Disc bulge posterior annular fissure and facet joint arthropathy result in mild spinal canal a nd mild to moderate bilateral neural foraminal stenosis. L4-L5: Disc bulge and facet joint arthropathy result in mild spinal canal and moderate bilateral neur al foraminal stenosis. L5-S1: The disc is rounded posterior morphology without significant spinal canal stenosis. Facet join t arthropathy with moderate neural foraminal stenosis. No significant spinal canal or neural foraminal stenosis in the remainder of the visualized levels. Other findings: Perineural cysts at S2 level measuring 12 mm. IMPRESSION: Multilevel moderate to severe degeneration changes are not significantly changed from 09/13/2021. Mult ilevel moderate neural foraminal stenosis throughout the spine worse at L5-S1. No evidence for signif icant spinal canal stenosis.
== END | disposition home or self-care (01) ==
LOC: RADMRIMAIN 15:58
PROVIDERS: ATTEND Orthopaedic Surgery
DX: M51.36 Other intervertebral disc degeneration, lumbar region (principal); M47.816 Spondylosis without myelopathy or radiculopathy, lumbar region; M48.061 Spinal stenosis, lumbar region without neurogenic claudication; M99.73 Connective tissue and disc stenosis of intervertebral foramina of lumbar region
CPT/HCPCS: 72148

== ENCOUNTER → 2023-02-14 | Outpatient (CLI) | payer OTHER ==
--- NOTE | 2023-02-15 18:20 | PE ---
EXAMINATION TYPE: PET CT fusion skull to thigh DATE OF EXAM: 02/14/2023 COMPARISON: CTA chest 11/30/2022 Prior PET/CT: None at this location HISTORY: Dizziness and giddiness, solitary pulmonary nodule TECHNIQUE: Following the intravenous administration of 11.22 mCi of F-18 FDG, whole body images are performed from the skull base to the midthigh. Images are reviewed on the computer in the coronal, a xial, and sagittal planes. Reconstructed rotating images are created on independent workstation and reviewed on the computer. A localization and attenuation correction CT is performed in conjunction with the PET scan. DLP: 5-0.76 mGycm SCAN: Subsequent Blood glucose: 95 mg/dL Average Mediastinum SUV: 1.56 Average Liver SUV: 1.17 FINDINGS: NECK: May BE some increased ocular muscle signal can be related to motion. No suspicious uptake with in the neck appears to be present. THORAX: There are couple of nodules in the anterior lateral right lung base, image is 122, SUV 0.85 a nd image 120, SUV 0.94. Not typical for a neoplastic appearance. Monitoring is recommended. Follow-up CT chest study recommended in 6 months. ABDOMEN: No abnormal uptake PELVIS: No abnormal uptake OSSEOUS STRUCTURES: No abnormal uptake LOCALIZATION CT: Small nodules are identified posterior lateral right lung. These correlate with the CTA findings. COMPARISON: No significant change IMPRESSION: 1. No lung nodules inferior lateral right lung base without marked increased uptake. These do not hav e a typical increased SUV to suggest neoplastic process at this time, monitoring with CT chest in 6 [facility] is recommended.
== END | disposition home or self-care (01) ==
LOC: RADPETMAIN 11:53
PROVIDERS: ATTEND Internal Medicine Sleep Medicine
DX: R91.1 Solitary pulmonary nodule (principal)
CPT/HCPCS: 78815; A9552

== ENCOUNTER → 2023-06-20 | Outpatient (CLI) | payer OTHER ==
[2023-06-20 19:13] LABS: HGB 16.1 g/dL (13.0-17.0); MCH 31.9 pg (27.0-32.0); MCHC 31.6 g/dL (32.0-37.0); NRBC Per 100 WBC 0 X 10*3/uL (0.00-0.01); Platelet Count 226 X 10*3/uL (140-440); RBC 5.05 X 10*6/uL (4.40-5.60); RDW 15.1 % (11.5-14.5); WBC 5.74 X 10*3/uL (4.50-10.00)
[2023-06-20 19:15] LABS: INR 1.66 sec (0.93-1.11); Prothrombin Time 17.3 sec (9.9-11.9)
[2023-06-20 19:39] LABS: ALT 23 U/L (10-49); AST 29 U/L (14-35); Albumin 3.7 g/dL (3.8-4.9); Albumin/Globulin Ratio 1.48 Ratio (1.60-3.17); Alkaline Phosphatase 70 U/L (41-126); BUN/Creat Ratio 14.25 Ratio (12.00-20.00); Blood Urea Nitrogen 11.4 mg/dL (9.0-27.0); Calcium 9.5 mg/dL (8.7-10.3); Carbon Dioxide 20.3 mmol/L (21.6-31.8); Chloride 107 mmol/L (96-109); Globulin 2.5 g/dL (1.6-3.3); Glucose 86 mg/dL (70-110); Potassium 4.2 mmol/L (3.5-5.5); Sodium 140 mmol/L (135-145); Total Bilirubin 0.4 mg/dL (0.3-1.2); Total Protein 6.2 g/dL (6.2-8.2)
== END | disposition home or self-care (01) ==
LOC: LABWHC1 12:35
PROVIDERS: ATTEND Orthopaedic Surgery
DX: M50.00 Cervical disc disorder with myelopathy, unspecified cervical region (principal); M47.12 Other spondylosis with myelopathy, cervical region; M48.02 Spinal stenosis, cervical region
CPT/HCPCS: 36415; 80053; 82306; 85027; 85610

== ENCOUNTER 2023-06-26 05:50 | Observation (INO) | payer OTHER ==
[~2023-06-26 05:50] MED LIST changes: +ACETAMINOPHEN TAB 500 MG TAB PO PRN; +GABAPENTIN 300 MG CAP PO PRN; -LACTATED RINGERS 1,000 ML IV SCH; -LIDOCAINE 1% (10MG/ML) FOR IV START INTRADERMA PRN; +ONDANSETRON 4 MG/2 ML VIAL IVP PRN; +TRANEXAMIC 1,000 MG/100ML-NACL 1,000 MG in SALINE 1 100ML.BAG IVPB PRN; +ceFAZolin 3 GM in SODIUM CHLORIDE 0.9% 100 ML IVPB PRN
[2023-06-26] MEDS ORDERED: MIDAZOLAM 2 MG/2 ML VIAL IV PRN (07:00)
[2023-06-26] MEDS ORDERED: MIDAZOLAM 2 MG/2 ML VIAL IVP ONE (07:03)
[2023-06-26] MEDS ORDERED: fentaNYL (PF) 50 MCG/ML 2 ML AMP IVP ONE (07:08)
[2023-06-26 07:13] LABS: INR 1.1 (<1.2)
--- NOTE | 2023-06-26 07:22 | P.HPOR ---
History of Present Illness H&P Date: 06/26/23 .D:Date: 06/19/23 : 10:58am .T:Title: *[facility] History and Physical Date of :[birth year] [id number]: NKDA Age: 62 year Height: 6'6" Weight: 255 lbs BMI: 29.47 kg/m2 Occupation: Retired VAS: 3 Hand:Right IMPRESSION: It was my pleasure to have seen and examined Robert. I reviewed the patient's clinical syndrome, physical findings, and imaging studies during the appointment today. It is my impression that the patient has a diagnosis of. 1. 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 Cervical myelopathy I outlined the natural course history without intervention and various interventional options. Spine Surgery Risk Review Mr. Preston is presenting for evaluation of neck and left upper extremity pain, left upper extremity numbness and tingling. It was my pleasure to have seen and examined Mr. Preston. In our visit today we have had a chance to go over subjective complaints, physical examination findings and treatments including the natural course history without intervention and various interventional options. The patients imaging demonstrates: [facility]04[facility]08[facility]2023 of CervicalSpine:Image reviewed Spondylosis noted from C3-C5 with disc degeneration and disc height loss anterior osteophytic changes posterior osteophytic changes stenosis foraminal and centrally which is moderate facet arthrosis is noted. Occipital cervical C1-2 joints are stable. No fractures lesions or other issues noted. Alignment is flat with decreased cervical lordosis due to spondylotic collapse. MRI scancompleted at [facility] from03/19/23 of CervicalSpine: - Re-reviewed with the patient in office today. C3 to C5 spondylosis with stenosis due to disc bulging disc herniation facet arthropathy and disc collapse and degenerative changes. No acute fractures are noted occipital cervical C1 2 joints are stable. XRay taken on 03/14/23 of Cervical Spinemultilayer AP lateral oblique flexion- extension views: - images were re-reviewed with the patient in office today. Spondylotic changes from C4 through C7. Foraminal stenosis related to this. No overt instability on flexion-extension films. I hear fracture dislocation otherwise noted occipital cervical C1 2 joints appear stable On physical exam, Mr. Preston demonstrates: A continued sharp, burning pain throughout the neck that radiates down into the left upper extremity. He notes tat his left arm pain is associated with numbness, tingling, and weakness. The patient reports experiencing worsening headaches over the last 1 to 2 months. He states his symptoms worsen after all activity. He reports experiencing severe sleep diturbances related to his ongoing pain and associated symptoms. I have explained to the patient that as their condition progresses it will cause further neurological deficits and eventual paralysis. Based on the patients imaging, physical exam, and the rapid progression and disabling nature of their symptoms, at this time I recommend surgery in the form of a: C3-5 ACDF. I discussed the risk and benefits of this procedure at length with Mr. Preston. The patient agreed to considered pursuing the procedure abovementioned. Prior to surgery, she should follow up with her PCP (Cardio, ID, IM etc) for clearance. Questions were invited and answered, and the patient wishes to proceed as outlined below. Diagnosis 1. C3-5 spondylosis with radiculopathy 2. Cervical stenosis, severe 3. UE weakness 4. Neck pain Currently, I am recommendin.C3-5 ACDF 2.Follow up with PCP for surgical clearance 3.Review of surgical risks and benefits as well as an educational packet on the proposed surgical procedure. Risks: All surgical procedures come with inherent risks, including those related to positioning, anesthesia, intraoperative findings, and postoperative complications. It is important to understand that surgery does not come with any guarantee of a successful outcome as complications and adverse events are always possible. The patient was given a handout in office today discussing the surgical procedure and risks associated with the intervention, both of which were discussed with the patient. These risks include but are not limited to the following: * Experiencing same, different or even worse symptoms in back, neck, arms, or legs compared to before surgery. Requiring further surgery or other forms of treatment presently or at some time in the future at same or other levels of the intended spine surgery. On an extreme but fortunately relatively rare basis severe complication such as blindness, stroke, heart attack, temporary and/or permanent nerve injury, paralysis, coma, or may occur, sometimes without known explanation. Surgical complications may include but are not limited to risk of infection, fluid accumulation in the surgical dissection site, including a seroma or hematoma, that requires additional surgery, wound drainage, bleeding, new numbness or weakness, vision changes/loss, spinal fluid leakage, non-healing and/or infected incision, headaches, difficulty or inability to swallow, hoarseness, hemopneumothorax, pneumothorax, impotence, retrograde ejaculation, vaginal dryness; injury to nerves, spinal cord, blood vessels, lymphatics or other vital organs (i.e., bowel injury, injury to the great vessels); heterotopic bone formation; complications related to the hardware such as screws, rods, cages including misplaced hardware, device failure, instrumentation at the wrong spine level, hardware fracture/breakage, or hardware loosening; vertebral failure of the spinal column above or below the newly placed hardware; retained surgical instrumentations or devices and the need for further surgery. * Medical risks of the planned spine surgery include but are not limited to generalized Infections to the whole body or local areas outside of the surgical site (sepsis), heart attack, bleeding, anaphylaxis, meningitis, seizure, epilepsy, hearing loss, burn orantes, laceration of the head or other areas of the body, bruising, hypersensitivity of the skin, bladder over disten javier; allergic reaction; shoulder injury related to positioning; fat, blood and air clots to other areas of the body like heart, lungs, brain; failure of internal organs such as lungs, kidneys, liver and excessive bleeding. If blood transfusions are necessary, note that transfusions may cause intolerance reactions such as anaphylaxis or other complex reactions. Despite best efforts, the results of spine surgery might not heal in terms of bone, soft tissues such as skin, fascia, ligaments, and joints. Additionally, in order to achieve best possible results, spine surgery may be carried out be yond the initially planned levels and involve decompression, fusion including insertion of hardware at levels other than the original intended area of surgical interest change some portions of the procedure in order to ensure the best possible outcomes. With spine surgery and spinal fusion, there are different off label uses of instrumentation (devices, implants and hardware) as well as biological substances (bone morphogenic proteins, demineralized bone matrix) as well as using extra bone from allograft sources (i.e. cadaver bone) or autograft (iliac crest bone, ribs, or the spine itself). The patient has been given information about these practices and their inherent risks and benefits. [facility] is an educational center that serves as a training facility for neurosurgical and orthopedic [employer] and Nursing students. Physician assistants are medically trained surgical providers who function in the outpatient, inpatient, and operating room setting under the direct supervision of the attending surgeon. [facility] has multiple operating rooms with single and overlapping rooms running daily. They currently function under the required guidelines as produced by the [facility] with regards to the overlapping rooms and will continue to comply with changes to this policy as they occur. The requirements include and are complied with as follows: (1) the critical portions of the overlapping rooms will not occur at the same time, (2) the attending physician will be physically present during the critical portions of the procedure and immediately available during the entire case, and (3) a back-up attending is designated should the primary attending not be immediately available. The patient has had a chance to review all the listed information, has been given print outs detailing this information, and has had all his/her questions answered to their satisfaction. It was my pleasure to have seen and examined Mr. Preston. In our visit today we have had a chance to go over my understanding of our patient's current condition, the natural course history without intervention and various interventional options. Questions were invited and answered, and the patient wishes to proceed as outlined above. I have seen and examined the patient for 25 minutes and we have spent more than 50% of the time in repeat and detailed counseling about the patient's condition, its natural course history with out and as much as can be predicted with surgery and re-review of various surgical treatment options. In conclusion, Mr. Preston requested we proceed with the above suggested surgery and are willing to accept risks and limitations of the suggested surgery as nature of the disease process and our best attempts at treatment for the condition. Thank you again for allowing us to be part of your patient's care. Please don't hesitate to contact me if you have any further questions. Follow-up: Post procedure Patient Education: (Informational booklet, instructions, etc) given at today's appointment: Yes .ED:Patient Education: Y Medications Reviewed: YES In our visit today Mr. Preston and I have had a chance to go over my understanding of the patient's current condition, the natural course history without intervention and various interventional options. Questions were invited and answered, and the patient wishes to proceed as outlined above. I will be sure to keep you updated afterMr. Mohan returns here for further follow-up. Thank you again for your referral. Please do not hesitate to contact me if you have any further questions. Signed and authenticated by: Subhash Marquis [facility] [address] [place] [address] This message is confidential, intended only for the named recipient(s) and may contain information that is privileged or exempt from disclosure under applicable law. If you are not the intended recipient(s), you are notified that the dissemination, distribution or copying of this information is strictly prohibited. If you received this message in error, please notify the sender then delete this message. Patient verbalizes understanding of the information discussed. The above note was initiated by Michelle Henning, physician recording assistant professor of education for Dr. Subhash Guerrero. This note has been reviewed by Dr. Guerrero, who has made his personal changes and impressions for this document. CC: Teo Garibay M.D. Past Medical History Past Medical History: COPD, Deep Vein Thrombosis (DVT), Hypertension Additional Past Medical History / Comment(s): lower back pain,dvt leg after injury from hitting it into 5 gallon bucket November 2022-needed to be on xarelto for 6 months History of Any Multi-Drug Resistant Organisms: None Reported Past Surgical History: Heart Catheterization, Orthopedic Surgery Additional Past Surgical History / Comment(s): ORIF RIGHT HIP. Past Anesthesia/Blood Transfusion Reactions: No Reported Reaction Past Psychological History: Anxiety Smoking Status: Current every day smoker Past Alcohol Use History: Abuse, Daily Additional Past Alcohol Use History / Comment(s): Has been a smoker for 40 yrs, since January 2022 cut down to <10 cigarettes per day, was up to 4 ppd. Drinks 1 quart of whiskey per day. Past Drug Use History: Marijuana Additional Drug Use History / Comment(s): Marijuana use couple times a week. pt aware no alcohol or marijauna 24 hrs before procedure - Past Family History Father Family Medical History: Cancer Additional Family Medical History / Comment(s): Colon cancer. Mother Family Medical History: Cancer Additional Family Medical History / Comment(s): Pancreatic cancer. Medications and Allergies Home Medications Medication Instructions Recorded Confirmed Type Citalopram Hydrobromide 40 mg PO HS 04/17/22 06/20/23 History [Citalopram HBr] Metoprolol Tartrate [Lopressor] 50 mg PO BID 04/17/22 06/20/23 History amLODIPine 10 mg PO HS 04/17/22 06/20/23 History hydrALAZINE HCL 25 mg PO BID 04/17/22 06/20/23 History traZODone HCL 150 mg PO HS PRN 04/17/22 06/20/23 History Losartan/Hydrochlorothiazide 1 tab PO QAM 04/18/22 06/20/23 History [Losartan-Hctz 100-12.5 mg Tab] Tamsulosin HCl [Flomax] 0.4 mg PO HS 09/19/22 06/20/23 History Albuterol Sulfate [Ventolin HFA] 1 puff INHALATION Q4H PRN 06/20/23 06/20/23 History EPINEPHrine (Auto Inject) [Epipen] 1 dose IM DIRECTED PRN 06/20/23 06/20/23 History Fluticasone/Umeclidin/Vilanter 1 puff INHALATION Q4H PRN 06/20/23 06/20/23 History [Trelegy Ellipta 100-62.5-25] oxyCODONE-APAP 10-325MG [Percocet 1 tab PO Q8H PRN 06/20/23 06/20/23 History 10-325 mg] Rivaroxaban [Xarelto] 10 mg PO DAILY 06/24/23 06/24/23 History Allergies Allergy/AdvReac Type Severity Reaction Status Date / Time No Known Allergies Allergy Verified 06/20/23 08:31 Physical Examination Osteopathic Statement: *. No significant issues noted on an osteopathic structural exam other than those noted in the History and Physical/Consult. Results - Labs Labs: Coagulation 06/26/23 Range/Units 06:56 INR 1.1 (<1.2)
[2023-06-26] MEDS ORDERED: DEXAMETHASONE SOD PHOSPHATE 4 MG/ML 1 ML VIAL IVP ONE (07:26)
--- NOTE | 2023-06-26 07:29 | P.ANPRN ---
Procedure Note - Anesthesia - Invasive Line Right Arterial Line Time Out Performed: Yes Date of Procedure: 06/26/23 Time of Procedure: 07:05 Location of Patient: PreOp Preparation: Sterile Prep Arterial Line Location: Radial Ultrasound Used: Yes Purpose - Visualization and Identification of Vasculature: Yes Image Stored and Saved: Yes Narrative: Central line placement per sterile protocol utilized.
[2023-06-26] MEDS: LACTATED RINGERS 1,000 ML IV SCH ×2 (07:36→11:50)
[2023-06-26] MEDS ORDERED: fentaNYL (PF) 50 MCG/ML 2 ML AMP ONE (07:37)
[2023-06-26] MEDS ORDERED: PHENYLEPHRINE-0.9% NACL SYG 1,000 MCG/10 ML SYRINGE ONE (07:37)
[2023-06-26] MEDS ORDERED: SUCCINYLCHOLINE CHLORIDE 200 MG/10 ML VIAL IV ONE (07:37)
[2023-06-26] MEDS ORDERED: NEOSTIGMINE 1 MG/ML 10 ML VIAL ONE (07:37)
[2023-06-26] MEDS ORDERED: ePHEDrine 50 MG/ML 1 ML VIAL ONE (07:37)
[2023-06-26] MEDS ORDERED: LIDOCAINE 1% INJ 10MG/ML (20 ML MDV) ONE (07:37)
[2023-06-26] MEDS ORDERED: PROPOFOL 10 MG/ML 20 ML VIAL IV ONE (07:37)
[2023-06-26] MEDS ORDERED: PHENYLEPHRINE 10 MG/ML VIAL ONE (07:37)
[2023-06-26] MEDS ORDERED: ROCURONIUM 10 MG/ML (5 ML VIAL) IV ONE (07:37)
[2023-06-26] MEDS ORDERED: HYDROmorphone (PF) 1 MG/ML ONE (07:37)
[2023-06-26] MEDS ORDERED: KETAMINE HCL IN 0.9 % NACL 50 MG/5 ML SYRINGE ONE (07:37)
[2023-06-26] MEDS ORDERED: GLYCOPYRROLATE 0.2 MG/ML 2 ML VIAL ONE (07:37)
[2023-06-26] MEDS ORDERED: WATER FOR INJECTION, STERILE 10 ML VIAL IV ONE (07:37)
[2023-06-26] MEDS ORDERED: MIDAZOLAM 2 MG/2 ML VIAL ONE (07:37)
[2023-06-26] MEDS: LACTATED RINGERS 1,000 ML IV ONE ×2 (07:39→11:55)
[2023-06-26] MEDS ORDERED: IV FLUID CONTINUATION 800 ML IV ONE (07:42)
[2023-06-26] MEDS ORDERED: IV FLUID CONTINUATION 900 ML IV ONE (07:42)
[2023-06-26] MEDS ORDERED: THROMBIN (BOVINE) 5,000 UNIT VIAL TOPICAL ONE (08:23)
[2023-06-26] MEDS ORDERED: GELATIN SPONGE,ABSORB (LARGE) 1 EACH SPONGE TOPICAL ONE (08:23)
[2023-06-26] MEDS ORDERED: HYDROmorphone 0.5 MG/0.5 ML SYRINGE IVP PRN (10:01)
[2023-06-26] MEDS ORDERED: SENNOSIDES-DOCUSATE SODIUM 1 EACH TAB PO PRN (10:01)
[2023-06-26] MEDS ORDERED: MAGNESIUM HYDROXIDE 2,400 MG/30 ML CUP PO PRN (10:01)
--- NOTE | 2023-06-26 10:16 | FL ---
EXAMINATION TYPE: FL guidance operating room, XR cervical spine limited Intraoperative/procedural flu oroscopic services were provided. Total fluoroscopy time is 31 seconds with a total of 5 submitted im ages to PACS. Please see the operative/procedural note for further details. DAP: 0.7271 Gycm2
--- NOTE | 2023-06-26 10:17 | P.OP ---
Date of Procedure: 06/26/23 Preoperative Diagnosis: M47.12 Other spondylosis with myelopathy, cervical region M48.02 Spinal stenosis, cervical region M50.021 Cervical disc disorder at C4-C5 level with myelopathy M50.01 Cervical disc disorder with myelopathy, high cervical region M62.59 Muscle wasting and atrophy, not elsewhere classified, multiple sites Postoperative Diagnosis: M47.12 Other spondylosis with myelopathy, cervical region M48.02 Spinal stenosis, cervical region M50.021 Cervical disc disorder at C4-C5 level with myelopathy M50.01 Cervical disc disorder with myelopathy, high cervical region M62.59 Muscle wasting and atrophy, not elsewhere classified, multiple sites Procedure(s) Performed: * 80436 * Arthrodesis, anterior interbody, including disc space preparation, discectomy, osteophytectomy and decompression of spinal cord and/or nerve roots; cervical below C2 * C3-4 * 59213 * Arthrodesis, anterior interbody, including disc space preparation, discectomy, osteophytectomy and decompression of spinal cord and/or nerve roots; cervical below C2, each additional interspace (List separately in addition to code for primary procedure) * C4-5 * 09966 * 2 to 3 vertebral segments (List separately in addition to code for primary procedure) * C3-5 ANTERIOR NONSEGMENTAL PLATE APPLICATION * 30260 X2 * Insertion of interbody biomechanical device(s) (eg, synthetic cage, mesh) with integral anterior instrumentation for device anchoring (eg, screws, flanges), when performed, to intervertebral disc space in conjunction with interbody arthrodesis, each interspace (List separately in addition to code for primary procedure) * C3-4, C4-5 INTERBODY PLACEMENT USE OF IONM USE OF IO MICROSCOPE Implants: * ELENITA CASCADIA 9 AND 10 MM 7 DEG CAGES * ELENITA OZARK ANTERIOR CERVICAL PLATE 50 MM * 16MM SCREWS * MAGNATOS, AUTOGRAFT Anesthesia: GETA Surgeon: Subhash Guerrero Electronic Organ Technician #1: Levar Rodriguez (WAS PRESENT FROM POSITIONING TO CAGE PLACEMENT) Electronic Organ Technician #2: Jose Loredo (WAS PRESENT FROM CAGE PLACEMENTS TO DRESSING PLACEMENT) Estimated Blood Loss (ml): 25 IV fluids (ml): 1,800 Urine output (ml): 0 Pathology: none sent Indications for Procedure: Mr. Preston is presenting for evaluation of neck and left upper extremity pain, left upper extremity numbness and tingling. It was my pleasure to have seen and examined Mr. Preston. In our visit today we have had a chance to go over subjective complaints, physical examination findings and treatments including the natural course history without intervention and various interventional options. The patients imaging demonstrates: [facility]04[facility]2023 of CervicalSpine:Image reviewed Spondylosis noted from C3-C5 with disc degeneration and disc height loss anterior osteophytic changes posterior osteophytic changes stenosis foraminal and centrally which is moderate facet arthrosis is noted. Occipital cervical C1-2 joints are stable. No fractures lesions or other issues noted. Alignment is flat with decreased cervical lordosis due to spondylotic collapse. MRI scancompleted at [facility] from03/19/23 of CervicalSpine: - Re-reviewed with the patient in office today. C3 to C5 spondylosis with stenosis due to disc bulging disc herniation facet arthropathy and disc collapse and degenerative changes. No acute fractures are noted occipital cervical C1 2 joints are stable. XRay taken on 03/14/23 of Cervical Spinemultilayer AP lateral oblique flexion- extension views: - images were re-reviewed with the patient in office today. Spondylotic changes from C4 through C7. Foraminal stenosis related to this. No overt instability on flexion-extension films. I hear fracture dislocation otherwise noted occipital cervical C1 2 joints appear stable On physical exam, Mr. Preston demonstrates: A continued sharp, burning pain throughout the neck that radiates down into the left upper extremity. He notes tat his left arm pain is associated with numbness, tingling, and weakness. The patient reports experiencing worsening headaches over the last 1 to 2 months. He states his symptoms worsen after all activity. He reports experiencing severe sleep diturbances related to his ongoing pain and associated symptoms. I have explained to the patient that as their condition progresses it will cause further neurological deficits and eventual paralysis. Based on the patients imaging, physical exam, and the rapid progression and disabling nature of their symptoms, at this time I recommend surgery in the form of a: C3-5 ACDF. I discussed the risk and benefits of this procedure at length with Mr. Preston. The patient agreed to considered pursuing the procedure abovementioned. Prior to surgery, she should follow up with her PCP (Cardio, ID, IM etc) for clearance. Questions were invited and answered, and the patient wishes to proceed as outlined below. Currently, I am recommendin.C3-5 ACDF 2.Follow up with PCP for surgical clearance 3.Review of surgical risks and benefits as well as an educational packet on the proposed surgical procedure. Description of Procedure: C3-5 ACDF The patient was seen and examined in the preoperative area. All preoperative protocols were followed. Informed consent was obtained, risks and benefits of the procedure were discussed at length. Risks including bleeding infection damage to the surrounding tissue and risk of reoperation were discussed with the patient. Risk of anesthesia up to and including was discussed with the patient. These are outlined in the risk review. They were willing to accept these risks and all the risks of surgery. The patient was given a weight-based dose of antibiotics in the form of 2 g Ancef. The patient was seen and cyndy luated by the anesthesia team who deemed them fit for surgery. The site was marked, the patient was willing to proceed with the procedure. The patient was transferred to the operative suite by the Department of anesthesia. They were then drifted off to sleep by the department anesthesia and GETA was performed. The patient tolerated this well. Carr catheter was placed by nursing staff, a-traumatically. Once confirmation of lines and ventilation the patient was transferred to a Supine Juan Luis table very carefully. All bony prominences including wrists, elbows, axilla, chest, hips, and thighs, and feet were padded very well. Special attention was paid to the genitalia, and these were padded accordingly. SCDs were placed on bilateral lower extremities and were connected. Arms were well padded and placed at their side thumbs up. Once in position, again we confirmed good ventilation capabilities and that lines were running appropriately. The patients Cervical spine was then exposed. 1010s were placed outlining the incision site. Standard alcohol was used to clean the incision site and allowed to dry. C-arm was used to bio-georgette the patient and confirm level for incision which was marked with a skin marker. Operative briefing was performed with all teams and everyone in agreement to proceed. The patient was then prepped and draped in a normal sterile fashion. Timeout was then performed, and all parties agreed with the procedure to be performed. Transverse skin incision was then made on the right side of the patient's neck 3 cm and dissection taken down to the platysma which was split transversely. Sub platysma flap was made, and interval identified between SCM and medial structures. Omohyoid was visualized and protected. Blunt dissection taken down to the anterior cervical fascia which was identified. Blunt probe was then placed and lateral image taken which confirmed levels for operation. These levels were then marked with a bovi. Subperiosteal dissection of the longissimus muscles were then done over these levels identifying uncovertebral joints bilaterally. Retractor was then placed deep to these muscles and held in place with a bed arm. Starting at C3-4, [place] pins were placed into C3 and C4 and gentle distraction taken out over the levels. David rongeur used to remove disc material. Operating microscope brought in for visualization. Complete discectomy performed at this level with curette, rongure and pituitary. High speed hever used to remove osteophytes anteriorly and posteriorly until PLL was identified. 6-0 up curette then used to identify the canal and resect the PLL. 2-0 and 3-0 Kerrison used then to remove PLL and disc herniation and performed b/l foraminotomies. Once good decompression was accomplished, meticul ous hemostasis was performed. Sizers were then placed under lateral fluoroscopy until the desired height and lordosis. Cage was then selected, packed with autograft and allograft and placed under lateral imaging. Once in good position it was tested and stable. Motors run before and after cage placement were stable. The wound was irrigated, and autograft placed lateral to the cage anteriorly for fusion. [place] pin was then removed from C3 and placed into C5. Gentle distraction taken out over C4-5 now. Complete discectomy done at C4-5 as described including decompression, b/l foraminotomies and PLL resection. Burring of endplates was minimal, osteophytes removed as described. Spacers were then sized and placed under lateral imaging. Cage selected, packed with graft and placed under lateral images. Once in position, meticulous hemostasis performed, and motors remained stable before and after cage placement. AP image confirmed good placement of cages. Wound was irrigated. A separate, non-integrated plate was then selected and sized under lateral image. The plate was then placed with screws. Fixed screws drilled into C5 and C4 b/l and screws placed. Then into C3 with variable screws. All locking mechanisms were set, and all screws had good purchase. Final AP and lateral images taken confirmed good placement of hardware and good reduction and oriental orthodox of height. The wound was then irrigated copiously with NSS. Surgicel placed deep in the wound. A deep drain placed out a separate incision and sewed into place. Layered closure then performed with 3-0 Vicryl in the platysma and subQ tissue. 4-0 Strata fix in the subcuticular tissue. The wound was then cleaned, and dried and skin glue placed. Once glue dried on Opifoam was placed. The patient was then transferred back to their hospital bed a-traumatically. The drain continued to hold suction. They were placed in a soft collar. They were then awakened by the department of anesthesia having tolerated the procedure well without complications.
[2023-06-26] MEDS ORDERED: oxyCODONE-APAP 7.5-325MG 1 EACH TAB PO PRN (10:22)
[2023-06-26] MEDS: HYDROmorphone 0.5 MG/0.5 ML SYRINGE IVP PRN ×3 (10:25→10:58)
[2023-06-26] MEDS: oxyCODONE-APAP 10-325MG 1 EACH TAB PO PRN ×3 (11:48→23:39)
[2023-06-26] MEDS ORDERED: traZODone HCL 50 MG TAB PO PRN (13:12)
[2023-06-26] MEDS: HYDROmorphone 1 MG/ML 1 ML SYRINGE IVP PRN ×4 (13:21→22:09)
--- NOTE | 2023-06-26 14:25 | CT ---
EXAMINATION TYPE: CT cervical spine wo con DATE OF EXAM: 06/26/2023 COMPARISON: Prior CT cervical spine April 08, 2023 HISTORY: s/p C3-C5 ACDF CT DLP: 511.7 mGycm. Automated Exposure Control for Dose Reduction was Utilized. TECHNIQUE: CT scan of the cervical spine is obtained without contrast, axial images are obtained, sa gittal and coronal reformatted images are also reviewed. FINDINGS: Cervical spine shows minimal anterior fusion plate with metallic disc material at C3-C5 lev el. Alignment is satisfactory. Vertebral body heights are maintained. Iyyd-no-ntnnijcz multilevel dis c space narrowing and spurring in the lower cervical spine is redemonstrated. Review of axial images shows screw and disk positioning grossly satisfactory. There is heterogeneous ill-defined fluid and deep subcutaneous air along the right neck with a percutaneous surgical drain t erminating anterior to the right aspect C4 vertebra. Moderate calcified plaque bilateral carotid bulb level is incidentally noted. Lung apices show emphysematous change without pneumothorax. Neural fora anthony narrowing redemonstrated bilateral C6-C7 level due to marginal spurring similar to prior. IMPRESSION: There is surgical change C3-C5 levels with satisfactory alignment. Expected postsurgical changes to the right neck. No obvious complication identified.
[2023-06-26] MEDS: ALBUTEROL NEBULIZED 2.5 MG/3 ML INHALATION SCH ×2 (15:15→20:53)
[2023-06-26] MEDS: IPRATROPIUM 0.5 MG/2.5 ML NEBU INHALATION SCH ×2 (15:15→20:54)
[2023-06-26] MEDS: GABAPENTIN 300 MG CAP PO SCH ×2 (15:46→20:45)
[2023-06-26] MEDS: CYCLOBENZAPRINE 5 MG TAB PO PRN ×2 (16:01→19:42)
[2023-06-26] MEDS ORDERED: LORazepam 1 MG TAB PO PRN ×3 (17:43)
[2023-06-26] MEDS ORDERED: LORazepam 0.5 MG TAB PO PRN (17:43)
[2023-06-26] MEDS: TAMSULOSIN 0.4 MG CAP.ER.24H PO SCH (20:44)
[2023-06-26] MEDS: METOPROLOL TARTRATE 50 MG TAB PO SCH (20:44)
[2023-06-26] MEDS: CITALOPRAM HYDROBROMIDE 20 MG TAB PO SCH (20:44)
[2023-06-26] MEDS: amLODIPine 10 MG TAB PO SCH (20:45)
[2023-06-26] MEDS: hydrALAZINE HCL 25 MG TAB PO SCH (20:45)
[2023-06-26] MEDS: SYMBICORT 80-4.5 MCG INHALER INHALATION SCH (20:53)
[2023-06-27] MEDS: CYCLOBENZAPRINE 5 MG TAB PO PRN (00:08)
[2023-06-27] MEDS: ALBUTEROL NEBULIZED 2.5 MG/3 ML INHALATION SCH ×8 (00:14→20:48)
[2023-06-27 00:56] LABS: Appearance,Urine Clear (Clear); Bilirubin,Urine Negative (Negative); Blood,Urine Negative (Negative); Color,Urine Yellow; Glucose,Urine (UA) Negative (Negative); Ketones,Urine Negative (Negative); Leukocyte Esterase,Urine Negative (Negative); Nitrite,Urine Negative (Negative); PH, Urine 5.5 (5.0-8.0); Protein,Urine Negative (Negative); Specific Gravity,Urine 1.021 (1.001-1.035); Urobilinogen,Urine <2.0 mg/dL (<2.0)
[2023-06-27] MEDS: HYDROmorphone 1 MG/ML 1 ML SYRINGE IVP PRN ×5 (03:37→20:50)
[2023-06-27] MEDS: SYMBICORT 80-4.5 MCG INHALER INHALATION SCH ×2 (07:49→20:48)
[2023-06-27] MEDS: IPRATROPIUM 0.5 MG/2.5 ML NEBU INHALATION SCH ×4 (07:49→20:49)
[2023-06-27] MEDS: LACTATED RINGERS 1,000 ML IV SCH (08:06)
[2023-06-27 08:41] LABS: Basophils # (A) 0.03 X 10*3/uL (0.00-0.10); Basophils % (A) 0.3 %; Eosinophils # (A) 0.03 X 10*3/uL (0.04-0.35); Eosinophils % (A) 0.3 %; HCT 45.6 % (39.6-50.0); HGB 14.7 g/dL (13.0-17.0); Lymphocytes # (A) 1.87 X 10*3/uL (0.90-5.00); Lymphocytes % (A) 18.4 %; MCH 31.6 pg (27.0-32.0); MCHC 32.2 g/dL (32.0-37.0); MCV 98.1 FL (80.0-97.0); Mean Platelet Volume 10.8 FL (9.5-12.2); Monocytes % (A) 12.8 %; NRBC Per 100 WBC 0 X 10*3/uL (0.00-0.01); Neutrophils # (A) 6.91 X 10*3/uL (1.80-7.70); Neutrophils % (A) 67.9 %; Platelet Count 185 X 10*3/uL (140-440); RBC 4.65 X 10*6/uL (4.40-5.60); RDW 14.6 % (11.5-14.5); WBC 10.17 X 10*3/uL (4.50-10.00)
[2023-06-27 08:48] LABS: BUN/Creat Ratio 10.86 Ratio (12.00-20.00); Blood Urea Nitrogen 7.6 mg/dL (9.0-27.0); Carbon Dioxide 24.5 mmol/L (21.6-31.8); Chloride 102 mmol/L (96-109); Glucose 101 mg/dL (70-110); Potassium 4.1 mmol/L (3.5-5.5); Sodium 138 mmol/L (135-145)
[2023-06-27] MEDS ORDERED: DEXAMETHASONE SOD PHOSPHATE 10 MG/ML 1 ML VIAL IVP STA (08:57)
--- NOTE | 2023-06-27 09:26 | P.PN ---
Subjective Progress Note Date: 06/27/23 Principal diagnosis: 1. 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 Cervical myelopathy Patient seen and examined this morning. Patient was resting comfortably in a recliner at bedside. Patient reports he is having some difficulty with swallowing due to edema. Patient states he is able to swallow water at this time. No difficulty with breathing. Encouraged patient to continue diet with soft foods such as yogurt, pudding, ice cream. Patient verbalizes understanding. Patient has complaint of increased headache. Medications will be adjusted. Patient denies any numbness or tingling to the bilateral upper extremities. He reports that his pain is managed on current regimen. Surgical incision to the anterior cervical spine, edges are well approximate with glue intact, with MONTRELL drain in place. Mild to moderate edema surrounding the incision. Ice packs applied. We will reassess patient later this afternoon. Objective - Vital Signs Vital signs: Vital Signs Temp 98.2 F 06/27/23 07:15 Pulse 77 06/27/23 07:15 Resp 20 06/27/23 07:15 BP 155/82 06/27/23 07:15 Pulse Ox 92 L 06/27/23 07:15 FiO2 Intake & Output 06/26/23 06/27/23 06/27/23 18:59 06:59 18:59 Intake Total 1970 Output Total 55 1320 Balance 1915 -1320 Weight 115 kg Intake: IV 1700 Intake, IV Titration 270 Amount Lactated Ringers 1,000 ml 220 @ 0 mls/hr IV .[facility]K-[facility] ONE Rx#:[id number] ceFAZolin 2 gm In Sodium 50 Chloride 0.9% 50 ml @ 100 mls/hr IVPB Q8HR [facility] Rx# :[id number] Output: Drainage 30 20 Right Neck 30 20 Urine 1300 Uretheral (Durand) 800 Estimated Blood Loss 25 Other: # Voids 1 - Exam Physical Examination General: The patient is awake and alert, in no acute distress Skin: Skin is warm and dry with no obvious rashes or lesions. Surgical incision to the anterior cervical spine, edges are well approximated with glue intact. MONTRELL drain is in place. Mild to moderate edema noted surrounding incision. Eye: Pupils are equal, round and reactive to light, extra-ocular movements are intact; there is normal conjunctiva bilaterally. Neck: The neck is supple, there is mild tenderness and limited range of motion secondary to pain, surgical procedure, and soft cervical collar intact Cardiovascular: There is a regular rate and rhythm. No murmur, rub or gallop is appreciated. Respiratory: Lungs are clear to auscultation, respirations are non-labored, breath sounds are equal. Gastrointestinal: Soft, non-distended, non-tender abdomen. Back: There is no tenderness to palpation in the midline, paralumbar, parathoracic or buttocks region. There is no obvious deformity . Musculoskeletal: ROM limited secondary to pain and stiffness from surgical procedure. Muscle strength in all major muscle groups of bilateral upper extremities 4/5, bilateral lower extremities 5/5. Neurological: CN 2-12 intact. There are no obvious motor or sensory deficits. Movement and coordination equal and intact. Sensory exam to light touch intact C5-T1 and intact from L2-S1. Reflexes 2/4 in bilateral upper and lower extremities. Negative Hoffmans, babinski, and clonus signs. Psychiatric: Cooperative, appropriate mood & affect, normal judgment. - Labs CBC & Chem 7: 06/27/23 05:49 06/27/23 05:49 Labs: Abnormal Lab Results - Last 24 Hours (Table) 06/27/23 06/27/23 Range/Units 05:49 05:49 WBC 10.17 H (4.50-10.00) X 10*3/uL MCV 98.1 H (80.0-97.0) FL RDW 14.6 H (11.5-14.5) % Monocytes # 1.30 H (0.20-1.00) X 10*3/uL Eosinophils # 0.03 L (0.04-0.35) X 10*3/uL BUN 7.6 L (9.0-27.0) mg/dL BUN/Creatinine Ratio 10.86 L (12.00-20.00) Ratio Assessment and Plan Assessment: Postop day 1: C3-C5 ACDF 1. 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 Cervical myelopathy Plan: -Appreciate advertising sales consultant and team management. -Activity: Ambulate QID, OOB all meals, up and about, limit lifting bending twisting to less than 5 lbs. Use walker or cane if needed for stability. -Daily PT/OT, increase ambulation strength and balance. -Soft cervical collar when up and about, not needed in bed or chair -Pain control: Adequate at this time -Meds: reviewed -GI ppx: senna, Miralax -DC durand when up and about, bedside commode if needed -DVT PPX: OK to restart Heparin tonight -Hygiene: Shower today. Maintain dressing clean and dry. Meticulous cleaning after BMs away from the incision site -Drains: Maintain for now. Continue to monitor and record output q shift. -Encourage IS 10x/hr -Dispo: Anticipate discharge home tomorrow with homecare *I reviewed and discussed this case with my attending Dr. Guerrero, whom has reviewed this chart and films and is in agreement with assessment and plan of care as outlined above. I have personally seen and examined the patient, performed the documentation and the assessment and plan as written. Number of minutes spent on the visit: 25 minutes.
[2023-06-27] MEDS: ACETAMINOPHEN IV (For NPO) 1,000 MG in EMPTY BAG 1 BAG IVPB SCH ×3 (09:45→23:31)
[2023-06-27] MEDS: BENZOCAINE/MENTHOL LOZENG 1 EACH LOZENGE MUCOUS MEM PRN ×2 (09:51→15:31)
--- NOTE | 2023-06-27 10:25 | P.CONS ---
History of Present Illness - Reason for Consult Consult date: 06/26/23 Medical management Requesting physician: Subhash Guerrero - History of Present Illness This is a medical consult on 06/26/[address] Aguiar History: Patient is admission for cervical stenosis electively surgical done with cervical myelopathy C3 to C5. Post surgery consultation. I received a call from nursing staff in regard of the patient history of alcohol intake pint every other day of liquor, ordered for CWA protocol to avoid post surgery confusion and tremors with cessation of alcohol. Also requested solution with inability urinate with the residual volume more than 700 mL Carr catheter placed and consultation with urology. Patient has difficulty with swallowing post surgery with the right anterior approach of the surgical neck done by Dr. Ruiz'son Patient subsequently underwent computed tomography scan of the neck and was negative. With difficulty of swallowing. Past medical history Right hip fracture with shortening of the right lower extremities off the repair by Dr. Gonzalez. History of advanced cervical spine stenosis Degenerative arthritis generalized Chronic smoker COPD probably emphysematous. Hypertension Alcohol intake chronically. Cervical radiculopathy. ALLERGY unknown Review of system: Noncontributory except post surgical difficulty with swallowin g able to move upper and lower extremities. Physical exam: HEENT normal except over swallowing, natural teeth Neck right-sided incision for the surgery Chest increased anteroposterior diameter with underlying COPD on inhalation therapy Heart regular sinus rhythm Abdomen positive bowel sounds no pain Extremities moving for upper and lower no lateralizing sign Neurology no sensory or motor deficit Psychiatry: History of depression and anxiety. Assessment: #1 status post right cervical stenosis status post surgery #2 difficulty of swallowing computed tomography scan ordered #3 history of chronic alcohol intake rule out impending TDs #4 hypertension #5 COPD and emphysema Plan #1 reviewed medication and resumed #2 placed on inhalation therapy dewlap every 4 hour #3 continue hypertensive medication #4 started on medication prophylaxis for DTs CWA protocol with the Ativan. #5 placement of Carr catheter with the bladder retention, with the underlying benign prostatic hypertrophy and the effect of anesthesia #6 consultation with urology with more than 700 residual volume of urine. Past Medical History Past Medical History: COPD, Deep Vein Thrombosis (DVT), Hypertension Additional Past Medical History / Comment(s): lower back pain,dvt leg after injury from hitting it into 5 [employer] bucket November 2022-needed to be on xarelto for 6 months History of Any Multi-Drug Resistant Organisms: None Reported Past Surgical History: Heart Catheterization, Orthopedic Surgery Additional Past Surgical History / Comment(s): ORIF RIGHT HIP. Past Anesthesia/Blood Transfusion Reactions: No Reported Reaction Past Psychological History: Anxiety Smoking Status: Current every day smoker Past Alcohol Use History: Abuse, Daily Additional Past Alcohol Use History / Comment(s): Has been a smoker for 40 yrs, since January 2022 cut down to <10 cigarettes per day, was up to 4 ppd. Drinks 1 quart of whiskey per day. Past Drug Use History: Marijuana Additional Drug Use History / Comment(s): Marijuana use couple times a week. pt aware no alcohol or marijauna 24 hrs before procedure. Reports quitting smoking 06/16/23 and using vape - Past Family History Father Family Medical History: Cancer Additional Family Medical History / Comment(s): Colon cancer. Mother Family Medical History: Cancer Additional Family Medical History / Comment(s): Pancreatic cancer. Medications and Allergies Home Medications Medication Instructions Recorded Confirmed Type Citalopram Hydrobromide 40 mg PO HS 04/17/22 06/20/23 History [Citalopram HBr] Metoprolol Tartrate [Lopressor] 50 mg PO BID 04/17/22 06/20/23 History amLODIPine 10 mg PO HS 04/17/22 06/20/23 History hydrALAZINE HCL 25 mg PO BID 04/17/22 06/20/23 History traZODone HCL 150 mg PO HS PRN 04/17/22 06/20/23 History Losartan/Hydrochlorothiazide 1 tab PO QAM 04/18/22 06/20/23 History [Losartan-Hctz 100-12.5 mg Tab] Tamsulosin HCl [Flomax] 0.4 mg PO HS 09/19/22 06/20/23 History Albuterol Sulfate [Ventolin HFA] 1 puff INHALATION Q4H PRN 06/20/23 06/20/23 History EPINEPHrine (Auto Inject) [Epipen] 1 dose IM DIRECTED PRN 06/20/23 06/20/23 History Fluticasone/Umeclidin/Vilanter 1 puff INHALATION Q4H PRN 06/20/23 06/20/23 Histo ry [Trelegy Ellipta 100-62.5-25] oxyCODONE-APAP 10-325MG [Percocet 1 tab PO Q8H PRN 06/20/23 06/20/23 History 10-325 mg] Rivaroxaban [Xarelto] 10 mg PO DAILY 06/24/23 06/24/23 History Allergies Allergy/AdvReac Type Severity Reaction Status Date / Time No Known Allergies Allergy Verified 06/20/23 08:31 Physical Exam Vitals: Vital Signs Temp Pulse Pulse Resp BP Pulse Ox 06/27/23 07:15 98.2 F 77 20 155/82 92 L 06/27/23 00:30 98.1 F 77 19 149/83 93 L 06/26/23 19:20 97.9 F 85 18 148/84 93 L 06/26/23 15:33 70 06/26/23 15:15 70 06/26/23 13:35 68 150/90 97 06/26/23 13:30 98.2 F 67 20 150/91 97 06/26/23 12:10 72 135/91 97 06/26/23 11:55 64 156/93 96 06/26/23 11:40 65 151/89 96 06/26/23 11:25 77 140/90 98 06/26/23 11:00 72 16 129/80 98 06/26/23 10:45 70 16 132/81 98 06/26/23 10:30 66 16 138/81 98 06/26/23 10:15 98 F 70 14 134/81 96 Intake and Output 06/26/23 06/27/23 06/27/23 22:59 06:59 14:59 Intake Total 270 Output Total 30 1320 Balance 240 -1320 Intake: Intake, IV Titration 270 Amount Lactated Ringers 1,000 ml 220 @ 0 mls/hr IV .[facility]K-[facility] Rx#:[id number] ceFAZolin 2 gm In Sodium 50 Chloride 0.9% 50 ml @ 100 mls/hr IVPB Q8HR [facility] Rx# :[id number] Output: Drainage 30 20 Right Neck 30 20 Urine 1300 Uretheral (Carr) 800 Other: # Voids 1 Results CBC & Chem 7: 06/27/23 05:49 06/27/23 05:49 Labs: Abnormal Lab Results - Last 24 Hours (Table) 01/05/24 01/05/24 Range/Units 05:49 05:49 WBC 10.17 H (4.50-10.00) X 10*3/uL MCV 98.1 H (80.0-97.0) FL RDW 14.6 H (11.5-14.5) % Monocytes # 1.30 H (0.20-1.00) X 10*3/uL Eosinophils # 0.03 L (0.04-0.35) X 10*3/uL BUN 7.6 L (9.0-27.0) mg/dL BUN/Creatinine Ratio 10.86 L (12.00-20.00) Ratio
--- NOTE | 2023-06-27 10:36 | P.PN ---
Subjective Progress Note Date: 06/27/23 This is follow-up progress note Date of service 06/27/2023. Dictation by Dr. Aguiar Patient seen today evaluated Patient complaining of inability to swallow we'll add oral lozenges probably with associated endotracheal tube Nurse practitioner of Dr. Armando Caban did order for him 1 dose of Decadron IV. Patient did not complain of confusion or agitation so far and he is sitting on the Cinthya chair. Vital signs stable with the current medication which is started yesterday On the physical exam: Patient is conscious alert oriented 3, Able to move upper and lower extremities No complain no paresthesias. Head was normocephalic and atraumatic, pupil was equal reactive conjunctiva was pink sclera was nonicteric Hearing is normal Oropharynx natural teeth able to eat and swallow however he has difficulties and not resulted yet Chest was increased anteroposterior diameter with his COPD and emphysema Heart regular sinus rhythm Abdomen soft positive bowel sounds Extremities no edema and positive pulses and the right leg is shorter than the left leg which is compensated in his cirrhosis. Neurologically stable Psychiatrically stable, no aggressiveness and no shakiness no tremors. Assessment: #1 patient had computed tomography scan yesterday of the neck was no indication of acute abnormality associated with the swallowing #2 chronic alcohol abuse #3 hypertension stable #4 chronic smoker. #5 status post cervical stenosis from C3 to C5 and status post surgical. #6 obstructive uropathy, with the benign prostatic hypertrophy #7 urine retention more than 700 mL postvoid. Carr catheter was placed for relief discomfort and urination. Plan: Seen by urologist and the advised to continue the Carr catheter and to follow patient as outpatient by Dr. Daniel in 2 weeks. Continue the current medication. Urine analysis so far was negative Laboratory was reviewed today not significant for postoperative minimal WBC elevation. And normal renal function. Continue the current plan Objective - Vital Signs Vital signs: Vital Signs Temp 98.2 F 06/27/23 07:15 Pulse 77 06/27/23 07:15 Resp 20 06/27/23 07:15 BP 155/82 06/27/23 07:15 Pulse Ox 92 L 06/27/23 07:15 FiO2 Intake & Output 06/26/23 06/27/23 06/27/23 18:59 06:59 18:59 Intake Total 1970 Output Total 55 1320 500 Balance 1915 -1320 -500 Weight 115 kg Intake: IV 1700 Intake, IV Titration 270 Amount Lactated Ringers 1,000 ml 220 @ 0 mls/hr IV .[facility] Rx#:[id number] ceFAZolin 2 gm In Sodium 50 Chloride 0.9% 50 ml @ 100 mls/hr IVPB Q8HR [facility] Rx# :[id number] Output: Drainage 30 20 Right Neck 30 20 Urine 1300 500 Uretheral (Carr) 800 Estimated Blood Loss 25 Other: # Voids 1 - Labs CBC & Chem 7: 06/27/23 05:49 06/27/23 05:49 Labs: Abnormal Lab Results - Last 24 Hours (Table) 06/27/23 06/27/23 Range/Units 05:49 05:49 WBC 10.17 H (4.50-10.00) X 10*3/uL MCV 98.1 H (80.0-97.0) FL RDW 14.6 H (11.5-14.5) % Monocytes # 1.30 H (0.20-1.00) X 10*3/uL Eosinophils # 0.03 L (0.04-0.35) X 10*3/uL BUN 7.6 L (9.0-27.0) mg/dL BUN/Creatinine Ratio 10.86 L (12.00-20.00) Ratio
[2023-06-27] MEDS: GABAPENTIN 300 MG CAP PO SCH ×3 (10:57→23:31)
[2023-06-27] MEDS: THIAMINE 100 MG TAB PO SCH (10:58)
[2023-06-27] MEDS: LOSARTAN 50 MG TAB PO SCH (12:55)
[2023-06-27] MEDS: hydrALAZINE HCL 25 MG TAB PO SCH ×2 (12:55→20:50)
[2023-06-27] MEDS: METOPROLOL TARTRATE 50 MG TAB PO SCH ×2 (12:55→20:50)
[2023-06-27] MEDS: hydroCHLOROthiazide 12.5 MG CAP PO SCH (12:55)
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
[2023-06-27] MEDS: amLODIPine 10 MG TAB PO SCH (20:50)
[2023-06-27] MEDS: CITALOPRAM HYDROBROMIDE 20 MG TAB PO SCH (20:50)
[2023-06-27] MEDS: TAMSULOSIN 0.4 MG CAP.ER.24H PO SCH (20:51)
[2023-06-28] MEDS: HYDROmorphone 1 MG/ML 1 ML SYRINGE IVP PRN (01:50)
[2023-06-28] MEDS: ACETAMINOPHEN IV (For NPO) 1,000 MG in EMPTY BAG 1 BAG IVPB SCH (06:11)
[2023-06-28] MEDS: BENZOCAINE/MENTHOL LOZENG 1 EACH LOZENGE MUCOUS MEM PRN (06:16)
[2023-06-28] MEDS: LACTATED RINGERS 1,000 ML IV SCH (06:16)
[2023-06-28] MEDS: THIAMINE 100 MG TAB PO SCH (07:28)
[2023-06-28] MEDS: hydroCHLOROthiazide 12.5 MG CAP PO SCH (07:59)
[2023-06-28] MEDS: hydrALAZINE HCL 25 MG TAB PO SCH (07:59)
[2023-06-28] MEDS: oxyCODONE-APAP 10-325MG 1 EACH TAB PO PRN (07:59)
[2023-06-28] MEDS: LOSARTAN 50 MG TAB PO SCH (07:59)
[2023-06-28] MEDS: METOPROLOL TARTRATE 50 MG TAB PO SCH (07:59)
[2023-06-28] MEDS: GABAPENTIN 300 MG CAP PO SCH (07:59)
[2023-06-28 08:02] VITALS: BP 148/88; PULSE 79; RESP 14; TEMP 98.2
--- NOTE | 2023-06-28 08:54 | P.DS ---
Providers Date of admission: 06/27/23 13:48 Expected date of discharge: 06/28/23 Attending physician: Subhash Guerrero DO Consults: 06/26/23 12:39 Consult Physician Routine Consulting Provider: Teo Garibay Reason/Comments: Medical Management s/p C3-C5 ACDF Do you want consulting provider notified?: Yes 06/27/23 00:01 Consult Physician Routine Consulting Provider: Chase Daniel Consult Reason/Comments: 700ml bladder retention, durand placement Do you want consulting provider notified?: Yes, Notify in am Primary care physician: Teo Garibay Hospital Course: Date of admission: 06/26/2023 Date of discharge: 06/28/2023 Admission diagnosis: 1. 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 Cervical myelopathy Discharge diagnosis: Same Attending physician: Dr. Guerrero Surgical procedures: C3-C5 ACDF Brief history: Patient is a 62-year-old male with a history of C3 to C5 spondylosis and stenosis; upper extremity radiculopathy; cervical myelopathy. At this point patient has failed conservative treatment measures and has opted to proceed with a elective C3 to C5 ACDF. Hospital course: Details of patient's surgery can be found in operative report. Patient tolerated the procedure well and was subsequently transported to orthopedic floor. Patient's orthopeidc and medical care was provided daily. Patient had daily laboratory tests performed for evaluation of overall blood counts. Patient had daily physical therapy to include strengthening range of motion as well as education with walker ambulation. Patient was noted to have a relatively uneventful postoperative course. Patient reported satisfactory pain control with oral pain medications by postoperative day 2. Patient showed satisfactory progress with physical therapy. Patient moved steadily through the program and had no difficulty meeting the goals by postoperative day 2. Given patient's otherwise satisfactory course and having met physical therapy goals, plan is to discharge patient home on postoperative day 2. Discharge condition/disposition: Patient will be discharged home in stable condition. Discharge medications: Instructions are given on resumption of patient's normal daily medications per primary care recommendation, in addition patient will be prescribed oxycodone; Flexeril; gabapentin; Duricef; senna. Spine Discharge and Recovery Instructions Date of Surgery: 06/26/2023 Diagnosis: 1. 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 Cervical myelopathy Procedure: C3-C5 ACDF Medications: See medication list All medication refills should be obtained through your primary care doctor or your clinic spine surgeon. Please discuss prescription refills at your follow up appointment. Do not call the hospital for medication refills. Dressing: Leave your dressing in place for a total of 5 days post operatively. Then you may remove your dressing and leave open to air. Keep the area clean and if not able to keep area clean, then cover with sterile gauze and tape. Showering: You may shower 3 days after your procedure allowing soap and water to run over incision. Do not scrub. Do not soak. Blot dry. Follow up: Please confirm a follow up appointment with your surgeon 3 weeks post operatively. Please make an appointment to follow up with your PCP in 1-2 weeks after surgery for evaluation 3 phase, 3-week plan POST OP WEEKS 1-3 1. Lifting/carrying/pushing/pulling limited to less than 5 pounds. 2. Do not sit for longer than 15 minutes at one time. Get up and walk around. Prolonged sitting is NOT advised. If you lay down, see if you can tolerate laying down on you front (belly side) 3. Walk for periods of 15 minutes = 1 mile but no longer; do it multiple times times each day. 4. Ice your low back after activity. POST OP WEEKS 3-6 1. Lifting limited to less than 20 pounds. 2. Do not sit for longer than 30 minutes at a time. Frequently change positions. Use a sit-to stand workstation or take frequent breaks from sitting if you have returned to work. 3. Walk for 30 minutes each day. If possible, do these three or more times a day POST OP WEEKS 6+ At your 6-week appointment we will give you a physical therapy referral to focus on a core stabilization and strengthening program. You should also work on leg & buttock strengthening, hamstring & quadriceps stretching, and continue a low impact aerobic activity program such as swimming, walking, or riding a stationary bicycle. During the initial 6 weeks after your surgery, you are at the highest risk of re-injuring your spine. You should generally avoid BLTs (bending, lifting and twisting combination motions) and follow the above guidelines to reduce the chance of reinjury. You can anticipate post op appointments in our office at approximately 3 weeks and 6 weeks after your surgery. INCISION CARE: If your incision is not draining you do NOT need to cover it with a dressing. Keep your incision clean, dry and intact. In most cases, we apply skin glue, chelita or sutures to the incision at the time of surgery. This will be like a crust or have the appearance of a scab and will fall off in time on its own. The stitches or chelita need to be removed at 3 weeks post op appointment. You may begin to shower 3 days after surgery (this allows the glue to farnsworth well). However, please avoid scrubbing the incision site or peeling off any of the skin glue. This will ensure optimal healing of your incision. Also, during this time avoid soaking the incision area in water - this includes swimming pools, hot tubs or baths. No ointments, lotions or oils on the incision until your surgeon allows. Leave chelita, sutures or glue in place. Neurological dysfunction that comes on suddenly can also be a sign of a stroke. Below some common symptoms of a stroke are listed: B - balance difficulty such as sudden onset walking or leaning to one side - NEW E - eye problem such as sudden double vision or trouble seeing on one side - NEW F - Facial weakness or numbness on one side - NEW A - Arm or leg weakness or numbness on one side - NEW S - Slurred speech or difficulty with word finding - NEW T - Time is BRAIN! Call 911 as soon as you recognize these symptoms Diet: Consume a regular diet rich in vegetables and lean protein such as chicken or fish. You should consume in a ratio of approximately 20% fats|40% carbohydrates|40%protein. Vegetables, sweet potatoes, brown rice or quinoa are examples of good carbohydrates. Chips, white bread, cookies and sweets/sugar are examples of bad carbohydrates. Limit your bad carbs, go wild with good carbs. "Life's Simple 7" Guidelines as per [place] [employer] These will help you reclaim your life after surgery and help desk rep in your recovery, keeping in mind your restrictions. (1) Get Active. Physical activity can help people lose weight, control high blood pressure and cholesterol, feel emotionally better, and sleep better. (2) Control Cholesterol. Avoid a diet high in saturated fat, trans fat, & cholesterol. Limit whole milk & cream, ice cream, butter, egg yolks, processed meats (like sausage and hot dogs), and fatty meats. Choose healthy foods that are low in saturated fat, trans fat and cholesterol which include: Fruits and vegetables, fiber rich grain products (like whole grain pasta and brown rice), lean meat such as chicken, fish, nuts, seeds, and legumes. (3) Eat Better. Eat small portions. Shop at the grocery with a list and do not stray from it. Tips for a healthy diet include: Limit sodium intake to less than 1500mg daily, avoid prepackaged, processed, and fast foods, choose a diet rich in fruits, vegetables, and whole grain, high fiber foods, and limit saturated & cholesterol in your diet. (4) Manage Blood Pressure. If you have high blood pressure, you should have a cuff at home so that you can check your blood pressure regularly. Be sure you have a good cuff. An arm one is generally better than a wrist one. Bring the cuff to a doctor's appointment to validate that the measurements that your cuff are taking are accurate. Take your blood pressure twice daily when you are sitting down and relaxing. Record the numbers in a log and bring this log with you to your doctors' appointments. (5) Lose Weight if your BMI is above 25. A healthy BMI is between 19-25. To calculate Your BMI, you may use a Standard BMI Calculator on the NIH BMI website: <www.nhlbi.nih.gov/guidelines/obesity/BMI/bmicalc.htm>. Weigh oneself daily. If you are overweight, set a goal to lose weight. A pound a week loss if needed is a good target. (6) Reduce Blood Sugar. Limit foods and liquids with "added sugars." (Added sugars include sucrose, fructose, glucose, maltose, dextrose, high fructose corn syrup, corn syrup, concentrated fruit juice and honey). (7) Stop Smoking. If you smoke, quitting smoking is one of the best things t hat you can do for your health. Smoking increases your risk of heart attack, stroke, and peripheral vascular disease, which is a build-up of plaque in your arteries. Please discard all the cigarettes and lighters in your house. Have a plan for what you will do when you have the urge to smoke. Direct and second- hand smoke shortens your life as well as the lives of your family, friends and others around you. For your health and the health of those around you, please consider quitting! Proper Bending Body Mechanics: Maintain a wide stance with one foot slightly in front of the other. Keep your back straight. Bend utilizing the strength in your hips and knees. Do not bend at the waist. Maintain the lifted object at your waist-level close to your body. Avoid lifting weight that causes immediately pain or pain anywhere in the body afterwards. Smoking/Nicotine If there was ever one thing that you could do to increase your overall health, decrease your risk of cardiovascular problems by about 39% the second you make the choice, it is to STOP SMOKING. Your body's most instant gratification is the second you stop smoking. We have all heard the studies, read the articles but it is true, smoking is extremely bad for your overall health, and moreover it is detrimental to your bone health. Nicotine, IN ANY FORM, kills bone cells, prevents your body from healing fractures, and significantly prolongs healing after surgery. In spine surgery specifically, it increases your risk of not healing your bones to create a fusion and increases your risk of having a revision surgery due to this up to 60%. I know it is hard. I know it feels impossible. But there are ways. Take control of your life. We are here to help you through it. And when you are ready, ask us and we can direct you to help if you desire. Use the START Plan to Quit Smoking (please visit the Helpguide.org website listed below for more information): S = Set a quit date. Choose a date within the next 2 weeks, so you have enough time to prepare without losing your motivation to quit. If you mainly smoke at work, quit on the weekend, so you have a few days to adjust to the change. T = Tell family, friends, and co-workers that you plan to quit. Let your friends and family in on your plan to quit smoking and tell them you need their support and encouragement to stop. Look for a quit joseph who wants to stop smoking as well. You can help each other get through the rough times. A = Anticipate and plan for the challenges you'll face while quitting. Most people who begin smoking again do so within the first 3 months. You can help yourself make it through by preparing ahead for common challenges, such as nicotine withdrawal and cigarette cravings. R = Remove cigarettes and other tobacco products from your home, car, and work. Throw away all your cigarettes (no emergency pack!), lighters, ashtrays, and matches. Wash your clothes and freshen up anything that smells like smoke. Shampoo your car, clean your drapes and carpet, and steam your furniture. T = Talk to your doctor about getting help to quit. Your doctor can prescribe medication to help with withdrawal and suggest other alternatives. If you can't see a doctor, you can get many products over the counter at your local pharmacy or grocery store, including the nicotine patch, nicotine lozenges, and nicotine gum. Resources for Quitting Smoking: <https://www.[place].gov/documents/[facility]/Quit_Tobacco_Resources_for_pati ents_313480_7.pdf> Supplementation: Take recommended dosages of Vitamin D and Calcium to help fortify your bones and help them to heal. See your health maintenance packet for dosages and re commended levels. DVT/VTE prophylaxis: You will be given compression stockings from the hospital. Wear these daily for the first two weeks after surgery. You may take them off at night. You may be prescribed a medication to help thin your blood. Take this as directed. If you are not prescribed this medication, early and frequent ambulation has been shown to be the best prophylaxis to deep vein thrombosis and sequelae related to this event. Assessment: 1. 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 Cervical myelopathy Procedures: C3-C5 ACDF Patient Condition at Discharge: Good Plan - Discharge Summary Discharge Rx Participant: No New Discharge Prescriptions: New Cyclobenzaprine [Flexeril] 5 mg PO TID #21 tablet oxyCODONE-APAP 10-325MG [Percocet 10-325 mg] 1 tab PO Q6HR PRN #28 tab PRN Reason: Pain Sennosides/Docusate Sodium [Senna Plus 8.6-50 mg Softgel] 1 each PO DAILY #20 capsule cefaDROXiL [Duricef] 500 mg PO Q12HR 5 Days #10 cap Gabapentin 300 mg PO TID #30 cap No Action amLODIPine 10 mg PO HS Metoprolol Tartrate [Lopressor] 50 mg PO BID hydrALAZINE HCL 25 mg PO BID Citalopram Hydrobromide [Citalopram HBr] 40 mg PO HS Tamsulosin HCl [Flomax] 0.4 mg PO HS Fluticasone/Umeclidin/Vilanter [Trelegy Ellipta 100-62.5-25] 1 puff INHALATION Q4H PRN PRN Reason: Shortness Of Breath Or Wheezing traZODone HCL 150 mg PO HS PRN PRN Reason: Insomnia Losartan/Hydrochlorothiazide [Losartan-Hctz 100-12.5 mg Tab] 1 tab PO QAM Albuterol Sulfate [Ventolin HFA] 1 puff INHALATION Q4H PRN PRN Reason: Shortness Of Breath Or Wheezing oxyCODONE-APAP 10-325MG [Percocet 10-325 mg] 1 tab PO Q8H PRN PRN Reason: Pain EPINEPHrine (Auto Inject) [Epipen] 1 dose IM DIRECTED PRN PRN Reason: Allergic Reaction Rivaroxaban [Xarelto] 10 mg PO DAILY Discharge Medication List Citalopram Hydrobromide [Citalopram HBr] 40 mg PO HS 04/17/22 [History] Metoprolol Tartrate [Lopressor] 50 mg PO BID 04/17/22 [History] amLODIPine 10 mg PO HS 04/17/22 [History] hydrALAZINE HCL 25 mg PO BID 04/17/22 [History] traZODone HCL 150 mg PO HS PRN 04/17/22 [History] Losartan/Hydrochlorothiazide [Losartan-Hctz 100-12.5 mg Tab] 1 tab PO QAM 04/18/22 [History] Tamsulosin HCl [Flomax] 0.4 mg PO HS 09/19/22 [History] Albuterol Sulfate [Ventolin HFA] 1 puff INHALATION Q4H PRN 06/20/23 [History] EPINEPHrine (Auto Inject) [Epipen] 1 dose IM DIRECTED PRN 06/20/23 [History] Fluticasone/Umeclidin/Vilanter [Trelegy Ellipta 100-62.5-25] 1 puff INHALATION Q4H PRN 06/20/23 [History] oxyCODONE-APAP 10-325MG [Percocet 10-325 mg] 1 tab PO Q8H PRN 06/20/23 [History] Rivaroxaban [Xarelto] 10 mg PO DAILY 06/24/23 [History] Cyclobenzaprine [Flexeril] 5 mg PO TID #21 tablet 06/28/23 [Rx] Gabapentin 300 mg PO TID #30 cap 06/28/23 [Rx] Sennosides/Docusate Sodium [Senna Plus 8.6-50 mg Softgel] 1 each PO DAILY #20 capsule 06/28/23 [Rx] cefaDROXiL [Duricef] 500 mg PO Q12HR 5 Days #10 cap 06/28/23 [Rx] oxyCODONE-APAP 10-325MG [Percocet 10-325 mg] 1 tab PO Q6HR PRN #28 tab 06/28/23 [Rx] Follow up Appointment(s)/Referral(s): Chase Daniel MD [STAFF PHYSICIAN] - 1 Week Subhash Guerrero DO [Doctor of Osteopathic Medicine] - 2 Weeks Activity/Diet/Wound Care/Special Instructions: Please pull durand 4hours before appointment Fredy Dressing may be removed on 07/01/2023 Spine Discharge and Recovery Instructions Date of Surgery: 06/26/2023 Diagnosis: 1. 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 Cervical myelopathy Procedure: C3-C5 ACDF Medications: See medication list All medication refills should be obtained through your primary care doctor or your clinic spine surgeon. Please discuss prescription refills at your follow up appointment. Do not call the hospital for medication refills. Dressing: Leave your dressing in place for a total of 5 days post operatively. Then you may remove your dressing and leave open to air. Keep the area clean and if not able to keep area clean, then cover with sterile gauze and tape. Showering: You may shower 3 days after your procedure allowing soap and water to run over incision. Do not scrub. Do not soak. Blot dry. Follow up: Please confirm a follow up appointment with your surgeon 3 weeks post operatively. Please make an appointment to follow up with your PCP in 1-2 weeks after surgery for evaluation 3 phase, 3-week plan POST OP WEEKS 1-3 1. Lifting/carrying/pushing/pulling limited to less than 5 pounds. 2. Do not sit for longer than 15 minutes at one time. Get up and walk around. Prolonged sitting is NOT advised. If you lay down, see if you can tolerate laying down on you front (belly side) 3. Walk for periods of 15 minutes = 1 mile but no longer; do it multiple times times each day. 4. Ice your low back after activity. POST OP WEEKS 3-6 1. Lifting limited to less than 20 pounds. 2. Do not sit for longer than 30 minutes at a time. Frequently change positions. Use a sit-to stand workstation or take frequent breaks from sitting i f you have returned to work. 3. Walk for 30 minutes each day. If possible, do these three or more times a day POST OP WEEKS 6+ At your 6-week appointment we will give you a physical therapy referral to focus on a core stabilization and strengthening program. You should also work on leg & buttock strengthening, hamstring & quadriceps stretching, and continue a low impact aerobic activity program such as swimming, walking, or riding a stationary bicycle. During the initial 6 weeks after your surgery, you are at the highest risk of re-injuring your spine. You should generally avoid BLTs (bending, lifting and twisting combination motions) and follow the above guidelines to reduce the chance of reinjury. You can anticipate post op appointments in our office at approximately 3 weeks and 6 weeks after your surgery. INCISION CARE: If your incision is not draining you do NOT need to cover it with a dressing. Keep your incision clean, dry and intact. In most cases, we apply skin glue, chelita or sutures to the incision at the time of surgery. This will be like a crust or have the appearance of a scab and will fall off in time on its own. The stitches or chelita need to be removed at 3 weeks post op appointment. You may begin to shower 3 days after surgery (this allows the glue to farnsworth well). However, please avoid scrubbing the incision site or peeling off any of the skin glue. This will ensure optimal healing of your incision. Also, during this time avoid soaking the incision area in water - this includes swimming pools, hot tubs or baths. No ointments, lotions or oils on the incision until your surgeon allows. Leave chelita, sutures or glue in place. Neurological dysfunction that comes on suddenly can also be a sign of a stroke. Below some common symptoms of a stroke are listed: B - balance difficulty such as sudden onset walking or leaning to one side - NEW E - eye problem such as sudden double vision or trouble seeing on one side - NEW F - Facial weakness or numbness on one side - NEW A - Arm or leg weakness or numbness on one side - NEW S - Slurred speech or difficulty with word finding - NEW T - Time is BRAIN! Call 911 as soon as you recognize these symptoms Diet: Consume a regular diet rich in vegetables and lean protein such as chicken or fish. You should consume in a ratio of approximately 20% fats|40% carbohydrates|40%protein. Vegetables, sweet potatoes, brown rice or quinoa are examples of good carbohydrates. Chips, white bread, cookies and sweets/sugar are examples of bad carbohydrates. Limit your bad carbs, go wild with good carbs. "Life's Simple 7" Guidelines as per [place] [employer] These will help you reclaim your life after surgery and help desk rep in your recovery, keeping in mind your restrictions. (1) Get Active. Physical activity can help people lose weight, control high blood pressure and cholesterol, feel emotionally better, and sleep better. (2) Control Cholesterol. Avoid a diet high in saturated fat, trans fat, & cholesterol. Limit whole milk & cream, ice cream, butter, egg yolks, processed meats (like sausage and hot dogs), and fatty meats. Choose healthy foods that are low in saturated fat, trans fat and cholesterol which include: Fruits and vegetables, fiber rich grain products (like whole grain pasta and brown rice), lean meat such as chicken, fish, nuts, seeds, and legumes. (3) Eat Better. Eat small portions. Shop at the grocery with a list and do not stray from it. Tips for a healthy diet include: Limit sodium intake to less than 1500mg daily, avoid prepackaged, processed, and fast foods, choose a diet rich in fruits, vegetables, and whole grain, high fiber foods, and limit saturated & cholesterol in your diet. (4) Manage Blood Pressure. If you have high blood pressure, you should have a cuff at home so that you can check your blood pressure regularly. Be sure you have a good cuff. An arm one is generally better than a wrist one. Bring the cuff to a doctor's appointment to validate that the measurements that your cuff are taking are accurate. Take your blood pressure twice daily when you are sitting down and relaxing. Record the numbers in a log and bring this log with you to your doctors' appointments. (5) Lose Weight if your BMI is above 25. A healthy BMI is between 19-25. To calculate Your BMI, you may use a Standard BMI Calculator on the NIH BMI website: <www.nhlbi.nih.gov/guidelines/obesity/BMI/bmicalc.htm>. Weigh oneself daily. If you are overweight, set a goal to lose weight. A pound a week loss if needed is a good target. (6) Reduce Blood Sugar. Limit foods and liquids with "added sugars." (Added sugars include sucrose, fructose, glucose, maltose, dextrose, high fructose corn syrup, corn syrup, concentrated fruit juice and honey). (7) Stop Smoking. If you smoke, quitting smoking is one of the best things that you can do for your health. Smoking increases your risk of heart attack, stroke, and peripheral vascular disease, which is a build-up of plaque in your arteries. Please discard all the cigarettes and lighters in your house. Have a plan for what you will do when you have the urge to smoke. Direct and second- hand smoke shortens your life as well as the lives of your family, friends and others around you. For your health and the health of those around you, please consider quitting! Proper Bending Body Mechanics: Maintain a wide stance with one foot slightly in front of the other. Keep your back straight. Bend utilizing the strength in your hips and knees. Do not bend at the waist. Maintain the lifted object at your waist-level close to your body. Avoid lifting weight that causes immediately pain or pain anywhere in the body afterwards. Smoking/Nicotine If there was ever one thing that you could do to increase your overall health, decrease your risk of cardiovascular problems by about 39% the second you make the choice, it is to STOP SMOKING. Your body's most instant gratification is the second you stop smoking. We have all heard the studies, read the articles but it is true, smoking is extremely bad for your overall health, and moreover it is detrimental to your bone health. Nicotine, IN ANY FORM, kills bone cells, prevents your body from healing fractures, and significantly prolongs healing after surgery. In spine surgery specifically, it increases your risk of not healing your bones to create a fusion and increases your risk of having a revision surgery due to this up to 60%. I know it is hard. I know it feels impossible. But there are ways. Take control of your life. We are here to help you through it. And when you are ready, ask us and we can direct you to help if you desire. Use the START Plan to Quit Smoking (please visit the [email or web address] website li william below for more information): S = Set a quit date. Choose a date within the next 2 weeks, so you have enough time to prepare without losing your motivation to quit. If you mainly smoke at work, quit on the weekend, so you have a few days to adjust to the change. T = Tell family, friends, and co-workers that you plan to quit. Let your friends and family in on your plan to quit smoking and tell them you need their support and encouragement to stop. Look for a quit joseph who wants to stop smoking as well. You can help each other get through the rough times. A = Anticipate and plan for the challenges you'll face while quitting. Most people who begin smoking again do so within the first 3 months. You can help yourself make it through by preparing ahead for common challenges, such as nicotine withdrawal and cigarette cravings. R = Remove cigarettes and other tobacco products from your home, car, and work. Throw away all your cigarettes (no emergency pack!), lighters, ashtrays, and matches. Wash your clothes and freshen up anything that smells like smoke. Shampoo your car, clean your drapes and carpet, and steam your furniture. T = Talk to your doctor about getting help to quit. Your doctor can prescribe medication to help with withdrawal and suggest other alternatives. If you can't see a doctor, you can get many products over the counter at your local pharmacy or grocery store, including the nicotine patch, nicotine lozenges, and nicotine gum. Resources for Quitting Smoking: <https://www.[place].gov/documents/[facility]/Quit_Tobacco_Resourc es_for_patients_313480_7.pdf> Supplementation: Take recommended dosages of Vitamin D and Calcium to help fortify your bones and help them to heal. See your health maintenance packet for dosages and recommended levels. DVT/VTE prophylaxis: You will be given compression stockings from the hospital. Wear these daily for the first two weeks after surgery. You may take them off at night. You may be prescribed a medication to help thin your blood. Take this as directed. If you are not prescribed this medication, early and frequent ambulation has been shown to be the best prophylaxis to deep vein thrombosis and sequelae related to this event. Discharge Disposition: HOME SELF-CARE
[2023-06-28] MEDS: SYMBICORT 80-4.5 MCG INHALER INHALATION SCH (09:15)
[2023-06-28] MEDS: IPRATROPIUM 0.5 MG/2.5 ML NEBU INHALATION SCH ×2 (09:15→11:15)
[2023-06-28] MEDS: ALBUTEROL NEBULIZED 2.5 MG/3 ML INHALATION SCH ×2 (09:15→11:13)
--- NOTE | 2023-06-28 09:17 | P.PN ---
Subjective Progress Note Date: 06/28/23 Principal diagnosis: 1. 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 Cervical myelopathy Patient was seen at bedside this morning with soft c-collar and dressing and drain in place over anterior cervical spine. Patient says he just finished working with therapy. Patient does have a Carr in place and urology has been following. Patient to follow-up with urology in the outpatient setting due to urinary retention. Patient says he has had some difficulty swallowing since surgery. He says most of the pain is localized to the neck. Patient is looking forward to going home today. Patient denies chest pain, fever, shortness of justyna ath, nausea, vomiting, change in vision, loss of bowel/bladder control. Objective - Vital Signs Vital signs: Vital Signs Temp 98.2 F 06/28/23 07:13 Pulse 79 06/28/23 07:13 Resp 14 06/28/23 07:13 BP 148/88 06/28/23 07:13 Pulse Ox 99 06/28/23 07:13 FiO2 Intake & Output 06/27/23 06/28/23 06/28/23 18:59 06:59 18:59 Intake Total 650 Output Total 1040 2440 Balance -390 -2440 Intake: Oral 650 Output: Drainage 40 40 Right Neck 40 40 Urine 1000 2400 Other: Voiding Method Indwelling Catheter Indwelling Catheter # Voids 1 3 - Exam Dressing and drain removed over the anterior cervical spine. New dressing placed over incision. Incision appears to be healing well at this time. Sensation is equal, symmetric, bilaterally intact at the upper and lower extremities on exam. There is some generalized tenderness to palpation directly over incision on the anterior cervical spine. Nontender to palpation throughout rest of exam. Patient does have similar range of motion in bilateral shoulders secondary to stiffness and referred pain to neck. Patient does have full range motion throughout bilateral elbows and wrists and flexion/extension. 4/5 in all major motor groups in bilateral upper extremities on exam. Radial pulses intact, 2+ bilaterally. Cap refill under 3 seconds in digits of Upper extr emities. Negative Homans bilaterally. - Labs CBC & Chem 7: 06/27/23 05:49 06/27/23 05:49 Labs: Abnormal Lab Results - Last 24 Hours (Table) 06/27/23 06/27/23 Range/Units 05:49 05:49 WBC 10.17 H (4.50-10.00) X 10*3/uL MCV 98.1 H (80.0-97.0) FL RDW 14.6 H (11.5-14.5) % Monocytes # 1.30 H (0.20-1.00) X 10*3/uL Eosinophils # 0.03 L (0.04-0.35) X 10*3/uL BUN 7.6 L (9.0-27.0) mg/dL BUN/Creatinine Ratio 10.86 L (12.00-20.00) Ratio Assessment and Plan Assessment: 1. 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 Cervical myelopathy - Postoperative day #2 status post C3-C5 ACDF Plan: 1. C3-5 spondylosis and stenosis; Upper extremity radiculopathy; cervical m yelopathy - surgery performed , 06/26/2023 to C5 ACDF. Patient stable at bedside this morning. Drain and dressing were removed at bedside this morning. He dressing placed over anterior cervical incision. Patient to go home with Carr and follow up with urology. Weightbearing as tolerated. Pain medication as needed. Discharge home today. 2. Appreciate medical management 3. Pain management - oxycodone; Flexeril; gabapentin 4. DVT prophylaxis - mechanical 5. GI prophylaxis - senna 6. PT/OT - weightbearing as tolerated. Soft cervical collar on while up and about. Only take off to shower 7. Encourage incentive spirometer use 8. discharge planning - home today Time with Patient: Less than 30
== END 2023-06-28 12:25 | disposition home or self-care (01) ==
LOC: OR 05:50 → 4SSUR 10:15 → OR 06-27 13:48
PROVIDERS: ADMIT Orthopaedic Surgery; ATTEND Orthopaedic Surgery
DX: M48.02 Spinal stenosis, cervical region (principal); M47.12 Other spondylosis with myelopathy, cervical region; M50.01 Cervical disc disorder with myelopathy, high cervical region; M50.021 Cervical disc disorder at C4-C5 level with myelopathy; M50.11 Cervical disc disorder with radiculopathy, high cervical region; M62.50 Muscle wasting and atrophy, not elsewhere classified, unspecified site; N13.8 Other obstructive and reflux uropathy; J43.9 Emphysema, unspecified; I10 Essential (primary) hypertension; N40.1 Benign prostatic hyperplasia with lower urinary tract symptoms; R33.8 Other retention of urine; J44.9 Chronic obstructive pulmonary disease, unspecified; E78.00 Pure hypercholesterolemia, unspecified; F10.10 Alcohol abuse, uncomplicated; R13.10 Dysphagia, unspecified; R60.9 Edema, unspecified; R51.9 Headache, unspecified; M15.9 Polyosteoarthritis, unspecified; F32.A Depression, unspecified; F41.9 Anxiety disorder, unspecified; F17.210 Nicotine dependence, cigarettes, uncomplicated; Z79.01 Long term (current) use of anticoagulants; Z79.899 Other long term (current) drug therapy; Z86.718 Personal history of other venous thrombosis and embolism; Z95.5 Presence of coronary angioplasty implant and graft; Z98.890 Other specified postprocedural states; Z82.49 Family history of ischemic heart disease and other diseases of the circulatory system; Z80.0 Family history of malignant neoplasm of digestive organs
CPT/HCPCS: 22551; 22552; 22845; 22853 ×2; 20930; 20936; 94640 ×2; 97161; 86900; 86901; 80048; 85025; 85610; 86850; 81003; 72040; 72125; G0378 ×2; C1713; J2250; J0330; J1100 ×2; J2710; J0690; J2405; J2001; J3010; J1170 ×4; J0131 ×2; J2704; J2371 ×2

== ENCOUNTER → 2023-10-10 | Outpatient (CLI) | payer MEDICARE, OTHER ==
--- NOTE | 2023-10-10 14:19 | CT ---
EXAMINATION TYPE: CT lumbar spine wo con DATE OF EXAM: 10/10/2023 2:06 PM COMPARISON: None HISTORY: Low back pain. Pre-surgical. CT DLP: 1701.9 mGycm Automated exposure control for dose reduction was used. Unenhanced CT of the lumbar spine was performed. Bone and soft tissue window settings are submitted as well as coronal and sagittal reconstructions. Findings: The lumbar vertebral segments are normal in height and alignment there is no fracture or subluxation. There is mild degenerative disease at the T11/T12, T12/L1, L1/L2, L2/L3, L3/L4 and L5/S1 where there is mild spondylosis , mild disc space narrowing, and circumferential disc bulge. There is vacuum phen omenon at the L5-S1 level. There is moderate to marked degenerative disease at the L4-5 level where t here is moderate to marked disc space narrowing, circumferential disc bulge, vacuum phenomenon and sp ondylosis. There are degenerative changes of the SI joints and mild degenerative changes facet joints throughout the lumbar region. Evaluation for herniated discs is limited with this technique but no large disc herniations are seen. There is no spinal stenosis. There is moderate bony encroachment of the neural foramen at the L5-S1 level bilaterally and mild bony encroachment of the neural foramen at the L4-5 level bilaterally. IMPRESSION: 1. Multilevel degenerative disease, moderate to severe at the L4-5 level and mild throughout the rem ainder of the lumbar spine and visualized lower thoracic spine. 2. Grossly no large disc herniations or spinal stenosis. 3. bony neuroforaminal stenosis at the L4-5 and L5-S1 levels bilaterally as described above. 4. No lumbar spine fracture or malalignment.
== END | disposition home or self-care (01) ==
LOC: RADCTMAIN 13:36
PROVIDERS: ATTEND Orthopaedic Surgery
DX: Z01.818 Encounter for other preprocedural examination (principal); M99.73 Connective tissue and disc stenosis of intervertebral foramina of lumbar region; M51.36 Other intervertebral disc degeneration, lumbar region; M48.061 Spinal stenosis, lumbar region without neurogenic claudication; M47.815 Spondylosis without myelopathy or radiculopathy, thoracolumbar region; M47.817 Spondylosis without myelopathy or radiculopathy, lumbosacral region
CPT/HCPCS: 72131

== ENCOUNTER → 2024-01-07 | Outpatient (CLI) | payer MEDICARE | END | disposition home or self-care (01) | LOC: LABPAT 15:13 | PROVIDERS: ATTEND Orthopaedic Surgery | DX: Z01.812 Encounter for preprocedural laboratory examination (principal); Z22.322 Carrier or suspected carrier of Methicillin resistant Staphylococcus aureus; M48.062 Spinal stenosis, lumbar region with neurogenic claudication; M47.817 Spondylosis without myelopathy or radiculopathy, lumbosacral region | CPT/HCPCS: 86850; 86900; 86901; 87070 ==

== ENCOUNTER 2024-03-20 12:56 | Observation (INO) | payer MEDICARE ==
--- NOTE | 2024-03-20 13:14 | ED ---
General Adult HPI - General Chief complaint: Shortness of Breath Stated complaint: SOB Time Seen by Provider: 03/20/24 13:05 Source: patient, RN notes reviewed Mode of arrival: ambulatory Limitations: no limitations - History of Present Illness Initial comments: Patient is a 63-year-old male present to the emergency department with concerns with difficulty breathing. Symptoms have progressed slowly over the past month, much worse today. No calf pain. No leg swelling. Dyspnea does worsen with exertion. No orthopnea. No fever or cough. Patient does have history of COPD with somewhat similar symptoms previously. - Related Data Home Medications Medication Instructions Recorded Confirmed Metoprolol Tartrate [Lopressor] 50 mg PO DAILY 04/17/22 03/20/24 hydrALAZINE HCL 25 mg PO DAILY 04/17/22 03/20/24 Tamsulosin HCl [Flomax] 0.4 mg PO DAILY 09/19/22 03/20/24 Albuterol Sulfate [Ventolin HFA] 2 puff INHALATION RT-Q6H PRN 06/20/23 03/20/24 Fluticasone/Umeclidin/Vilanter 2 puff INHALATION RT-DAILY 06/20/23 03/20/24 [Trelegy Ellipta 100-62.5-25] oxyCODONE-APAP 10-325MG [Percocet 1 tab PO Q8H PRN 06/20/23 03/20/24 10-325 mg] Budesonide [Pulmicort Flexhaler] 1 puff INHALATION RT-BID 03/20/24 03/20/24 Losartan Potassium 100 mg PO DAILY 03/20/24 03/20/24 Nicotine 21Mg/24Hr Patch [Habitrol] 1 patch TRANSDERM DAILY 03/20/24 03/20/24 Allergies Allergy/AdvReac Type Severity Reaction Status Date / Time No Known Allergies Allergy Verified 03/20/24 13:05 Review of Systems ROS Statement: Those systems with pertinent positive or pertinent negative responses have been documented in the HPI. ROS Other: All systems not noted in ROS Statement are negative. Constitutional: Denies: fever Eyes: Denies: eye pain ENT: Denies: ear pain Respiratory: Reports: as per HPI, dyspnea. Denies: cough Cardiovascular: Denies: chest pain Endocrine: Denies: fatigue Gastrointestinal: Denies: abdominal pain Past Medical History Past Medical History: Hypertension Additional Past Medical History / Comment(s): lower back pain History of Any Multi-Drug Resistant Organisms: None Reported Past Surgical History: Orthopedic Surgery Additional Past Surgical History / Comment(s): leg surgery Past Anesthesia/Blood Transfusion Reactions: No Reported Reaction Past Psychological History: Anxiety Smoking Status: Current every day smoker Past Alcohol Use History: Occasional Past Drug Use History: None Reported - Past Family History Father Family Medical History: Cancer Additional Family Medical History / Comment(s): Colon cancer. Mother Family Medical History: Cancer Additional Family Medical History / Comment(s): Pancreatic cancer. General Exam Limitations: no limitations General appearance: alert Head exam: Present: normocephalic Eye exam: Present: normal appearance Neck exam: Present: normal inspection Respiratory exam: Present: rhonchi, decreased breath sounds Cardiovascular Exam: Present: regular rate, normal rhythm GI/Abdominal exam: Present: soft. Absent: tenderness Extremities exam: Present: normal inspection. Absent: pedal edema, calf tenderness Neurological exam: Present: alert Psychiatric exam: Present: normal affect, normal mood Skin exam: Present: normal color Course Vital Signs 03/20/24 03/20/24 03/20/24 13:00 13:02 13:05 Temperature 97.8 F Pulse Rate 59 L 81 Respiratory 28 H 17 24 Rate Blood Pressure 170/126 165/106 O2 Sat by Pulse 78 L 78 L Oximetry 03/20/24 03/20/24 13:16 13:26 Temperature Pulse Rate 77 80 Respiratory Rate Blood Pressure O2 Sat by Pulse Oximetry EKG Findings - EKG Results: EKG: interpreted by ERMD (T wave inversion in lead III. QT 434. Nonspecific ST-T.), sinus rhythm, normal axis, normal QRS Medical Decision Making - Medical Decision Making Was pt. sent in by a medical professional or institution (, PA, SLUR[employer] M[employer]ER, urgent c are, hospital, or [place] health care facility...) When possible be specific @ -No Did you speak to anyone other than the patient for history (EMS, parent, family, police, friend...)? What history was obtained from this source @ -No Did you review nursing and triage notes (agree or disagree)? Why? @ -I reviewed and agree with nursing and triage notes Were old charts reviewed (outside hosp., previous admission, EMS record, old EKG, old radiological studies, urgent care reports/EKG's, [place] health care facility records)? Report findings @ - Differential Diagnosis (chest pain, altered mental status, abdominal pain women, abdominal pain men, vaginal bleeding, weakness, fever, dyspnea, syncope, headache, dizziness, GI bleed, back pain, seizure, CVA, palpatations, mental health, musculoskeletal)? @ -Differential Dyspnea: Coronary syndrome, arrhythmia, tamponade, asthma, COPD, pulmonary embolism, pneumonia, pneumothorax, pulmonary effusion, anaphylaxis, diabetic ketoacidosis, flailed chest, pulmonary contusion, diaphragmatic rupture, anemia, neuromuscular, this is not meant to be an all-inclusive list. EKG interpreted by me (3pts min.). @ -As above X-rays interpreted by me (1pt min.). @ -Chest x-ray does not reveal acute abnormality CT interpreted by me (1pt min.). @ -CT scan negative for pulmonary embolism U/S interpreted by me (1pt. min.). @ -None done What testing was considered but not performed or refused? (CT, X-rays, U/S, labs)? Why? @ -None What meds were considered but not given or refused? Why? @ -None Did you discuss the management of the patient with other professionals (professionals i.e. , PA, [employer]ER, lab, RT, psych nurse, transition social worker, print production manager, teacher, protection officer, sample case porter)? Give summary @ -Case discussed with Dr. Yoandy Aguiar who will admit his patient. Was smoking cessation discussed for >3mins.? @ -No Was critical care preformed (if so, how long)? @ -No Were there social determinants of health that impacted care today? How? (Homelessness, low income, unemployed, alcoholism, drug addiction, transportation, low edu. Level, literacy, decrease access to med. care, fdc, rehab)? @ -No Was there de-escalation of care discussed even if they declined (Discuss DNR or withdrawal of care, Hospice)? DNR status @ -No What co-morbidities impacted this encounter? (DM, HTN, Smoking, COPD, CAD, Cancer, CVA, ARF, Chemo, Hep., AIDS, mental health diagnosis, sleep apnea, morbid obesity)? @ -COPD history Was patient admitted / discharged? Hospital course, mention meds given and route, prescriptions, significant lab abnormalities, going to OR and other pertinent info. @ -Patient presents with dyspnea and hypoxia. Workup unremarkable other than COPD for acute cause. Patient will be admitted with pulmonary consult. Patient previously has seen Dr. Chaparro Undiagnosed new problem with uncertain prognosis? @ -No Drug Therapy requiring intensive monitoring for toxicity (Heparin, Nitro, Insulin, Cardizem)? @ -No Were any procedures done? @ -No Diagnosis/symptom? @ -COPD Acute, or Chronic, or Acute on Chronic? @ -Acute Uncomplicated (without systemic symptoms) or Complicated (systemic symptoms)? @ -Default Side effects of treatment? @ -No Exacerbation, Progression, or Severe Exacerbation? @ -Exacerbation Poses a threat to life or bodily function? How? (Chest pain, USA, OR, pneumonia, PE, COPD, DKA, ARF, appy, cholecystitis, CVA, Diverticulitis, Homicidal, Suicidal, threat to staff... and all critical care pts) @ -Threat to pulmonary function - Lab Data Result diagrams: 03/20/24 13:12 03/20/24 13:12 Lab Results 03/20/24 03/20/24 03/20/24 Range/Units 13:12 13:12 13:12 WBC 6.6 (3.8-10.6) k/uL RBC 4.89 (4.30-5.90) m/uL Hgb 16.1 (13.0-17.5) gm/dL Hct 51.4 (39.0-53.0) % MCV 105.2 H (80.0-100.0) fL MCH 33.0 (25.0-35.0) pg MCHC 31.4 (31.0-37.0) g/dL RDW 14.2 (11.5-15.5) % Plt Count 178 (150-450) k/uL MPV 8.6 Neutrophils % 48 % Lymphocytes % 33 % Monocytes % 12 % Eosinophils % 3 % Basophils % 1 % Neutrophils # 3.2 (1.3-7.7) k/uL Lymphocytes # 2.2 (1.0-4.8) k/uL Monocytes # 0.8 (0-1.0) k/uL Eosinophils # 0.2 (0-0.7) k/uL Basophils # 0.1 (0-0.2) k/uL Hypochromasia Slight Macrocytosis Moderate PT 11.5 (10.0-12.5) sec INR 1.1 (<1.2) APTT 25.7 (22.0-30.0) sec D-Dimer 1.14 H (<0.60) mg/L FEU Sodium 137 (137-145) mmol/L Potassium 5.0 (3.5-5.1) mmol/L Chloride 106 (98-107) mmol/L Carbon Dioxide 24 (22-30) mmol/L Anion Gap 7 mmol/L BUN 16 (9-20) mg/dL Creatinine 0.77 (0.66-1.25) mg/dL Est GFR (CKD-EPI)AfAm >90 (>60 ml/min/1.73 sqM) Est GFR (CKD-EPI)NonAf >90 (>60 ml/min/1.73 sqM) Glucose 103 H (74-99) mg/dL Lactic Ac Sepsis Rflx Plasma Lactic Acid Saad (0.7-2.0) mmol/L Calcium 9.7 (8.4-10.2) mg/dL Magnesium 1.3 L (1.6-2.3) mg/dL Total Bilirubin 1.1 (0.2-1.3) mg/dL AST 51 (17-59) U/L ALT 37 (4-49) U/L Alkaline Phosphatase 75 (38-126) U/L Troponin I (0.000-0.034) ng/mL NT-Pro-B Natriuret Pep 824 pg/mL Total Protein 6.7 (6.3-8.2) g/dL Albumin 3.8 (3.5-5.0) g/dL Influenza Type A (PCR) (Not Detectd) Influenza Type B (PCR) (Not Detectd) RSV (PCR) (Not Detectd) SARS-CoV-2 (PCR) (Not Detectd) 03/20/24 03/20/24 03/20/24 Range/Units 13:12 13:12 13:12 WBC (3.8-10.6) k/uL RBC (4.30-5.90) m/uL Hgb (13.0-17.5) gm/dL Hct (39.0-53.0) % MCV (80.0-100.0) fL MCH (25.0-35.0) pg MCHC (31.0-37.0) g/dL RDW (11.5-15.5) % Plt Count (150-450) k/uL MPV Neutrophils % % Lymphocytes % % Monocytes % % Eosinophils % % Basophils % % Neutrophils # (1.3-7.7) k/uL Lymphocytes # (1.0-4.8) k/uL Monocytes # (0-1.0) k/uL Eosinophils # (0-0.7) k/uL Basophils # (0-0.2) k/uL Hypochromasia Macrocytosis PT (10.0-12.5) sec INR (<1.2) APTT (22.0-30.0) sec D-Dimer (<0.60) mg/L FEU Sodium (137-145) mmol/L Potassium (3.5-5.1) mmol/L Chloride (98-107) mmol/L Carbon Dioxide (22-30) mmol/L Anion Gap mmol/L BUN (9-20) mg/dL Creatinine (0.66-1.25) mg/dL Est GFR (CKD-EPI)AfAm (>60 ml/min/1.73 sqM) Est GFR (CKD-EPI)NonAf (>60 ml/min/1.73 sqM) Glucose (74-99) mg/dL Lactic Ac Sepsis Rflx Plasma Lactic Acid Saad 3.0 H* (0.7-2.0) mmol/L Calcium (8.4-10.2) mg/dL Magnesium (1.6-2.3) mg/dL Total Bilirubin (0.2-1.3) mg/dL AST (17-59) U/L ALT (4-49) U/L Alkaline Phosphatase (38-126) U/L Troponin I <0.012 (0.000-0.034) ng/mL NT-Pro-B Natriuret Pep pg/mL Total Protein (6.3-8.2) g/dL Albumin (3.5-5.0) g/dL Influenza Type A (PCR) Not Detected (Not Detectd) Influenza Type B (PCR) Not Detected (Not Detectd) RSV (PCR) Not Detected (Not Detectd) SARS-CoV-2 (PCR) Not Detected (Not Detectd) 09/28/24 Range/Units 14:12 WBC (3.8-10.6) k/uL RBC (4.30-5.90) m/uL Hgb (13.0-17.5) gm/dL Hct (39.0-53.0) % MCV (80.0-100.0) fL MCH (25.0-35.0) pg MCHC (31.0-37.0) g/dL RDW (11.5-15.5) % Plt Count (150-450) k/uL MPV Neutrophils % % Lymphocytes % % Monocytes % % Eosinophils % % Basophils % % Neutrophils # (1.3-7.7) k/uL Lymphocytes # (1.0-4.8) k/uL Monocytes # (0-1.0) k/uL Eosinophils # (0-0.7) k/uL Basophils # (0-0.2) k/uL Hypochromasia Macrocytosis PT (10.0-12.5) sec INR (<1.2) APTT (22.0-30.0) sec D-Dimer (<0.60) mg/L FEU Sodium (137-145) mmol/L Potassium (3.5-5.1) mmol/L Chloride (98-107) mmol/L Carbon Dioxide (22-30) mmol/L Anion Gap mmol/L BUN (9-20) mg/dL Creatinine (0.66-1.25) mg/dL Est GFR (CKD-EPI)AfAm (>60 ml/min/1.73 sqM) Est GFR (CKD-EPI)NonAf (>60 ml/min/1.73 sqM) Glucose (74-99) mg/dL Lactic Ac Sepsis Rflx Y Plasma Lactic Acid Saad (0.7-2.0) mmol/L Calcium (8.4-10.2) mg/dL Magnesium (1.6-2.3) mg/dL Total Bilirubin (0.2-1.3) mg/dL AST (17-59) U/L ALT (4-49) U/L Alkaline Phosphatase (38-126) U/L Troponin I (0.000-0.034) ng/mL NT-Pro-B Natriuret Pep pg/mL Total Protein (6.3-8.2) g/dL Albumin (3.5-5.0) g/dL Influenza Type A (PCR) (Not Detectd) Influenza Type B (PCR) (Not Detectd) RSV (PCR) (Not Detectd) SARS-CoV-2 (PCR) (Not Detectd) Disposition Clinical Impression: Acute exacerbation of chronic obstructive pulmonary disease Disposition: ADMITTED IP TO THIS HOSP Condition: Serious Is patient prescribed a controlled substance at d/c from ED?: No Referrals: Teo Garibay MD [Primary Care Provider] - 1-2 days Time of Disposition: 16:23
[2024-03-20] MEDS: IPRATROPIUM-ALBUTEROL 3 ML NEB INHALATION STA (13:16)
[2024-03-20] MEDS: methylPREDNISolone SOD SUCCI 125 MG/2 ML VIAL IV STA (13:17)
--- NOTE | 2024-03-20 13:44 | XR ---
EXAMINATION TYPE: XR chest 2V DATE OF EXAM: 03/20/2024 COMPARISON: NONE HISTORY: Difficulty breathing TECHNIQUE: Frontal and lateral views of the chest are obtained. FINDINGS: There is no focal air space opacity, pleural effusion, or pneumothorax seen. The cardiac silhouette size is within normal limits. The osseous structures are intact. IMPRESSION: No acute cardiopulmonary process. [facility], Workstation: [facility], 03/20/2024 1:42 PM
[2024-03-20 13:48] LABS: Basophils # (A) 0.1 k/uL (0-0.2); Basophils % (A) 1 %; Eosinophils # (A) 0.2 k/uL (0-0.7); Eosinophils % (A) 3 %; HCT 51.4 % (39.0-53.0); HGB 16.1 gm/dL (13.0-17.5); Hypochromasia Slight; Lymphocytes # (A) 2.2 k/uL (1.0-4.8); Lymphocytes % (A) 33 %; MCHC 31.4 g/dL (31.0-37.0); MCV 105.2 fL (80.0-100.0); Macrocytosis Moderate; Mean Platelet Volume 8.6; Monocytes # (A) 0.8 k/uL (0-1.0); Monocytes % (A) 12 %; Neutrophils # (A) 3.2 k/uL (1.3-7.7); Neutrophils % (A) 48 %; Platelet Count 178 k/uL (150-450); RBC 4.89 m/uL (4.30-5.90); RDW 14.2 % (11.5-15.5); WBC 6.6 k/uL (3.8-10.6)
[2024-03-20 13:59] LABS: ALT 37 U/L (4-49); AST 51 U/L (17-59); African American GFR (CKD) >90 (>60 ml/min/1.73 sqM); Albumin 3.8 g/dL (3.5-5.0); Alkaline Phosphatase 75 U/L (38-126); Anion Gap 7 mmol/L; Blood Urea Nitrogen 16 mg/dL (9-20); Calcium 9.7 mg/dL (8.4-10.2); Carbon Dioxide 24 mmol/L (22-30); Chloride 106 mmol/L (98-107); Glucose 103 mg/dL (74-99); Magnesium 1.3 mg/dL (1.6-2.3); Non-African American GFR(CKD) >90 (>60 ml/min/1.73 sqM); Sodium 137 mmol/L (137-145); Total Bilirubin 1.1 mg/dL (0.2-1.3); Total Protein 6.7 g/dL (6.3-8.2)
[2024-03-20 14:04] LABS: INR 1.1 (<1.2); Partial Thromboplastin Time 25.7 sec (22.0-30.0); Prothrombin Time 11.5 sec (10.0-12.5)
[2024-03-20 14:07] LABS: NT-Pro-B-Type Natriuretic Pept 824 pg/mL
[2024-03-20] MEDS: MAGNESIUM SULFATE-D5W PMX 1 GM in DEXTROSE/WATER 1 100ML.BAG IVPB ONE (14:44)
[2024-03-20] MEDS: oxyCODONE-APAP 10-325MG 1 EACH TAB PO PRN (14:56)
[2024-03-20] MEDS ORDERED: ALBUTEROL NEBULIZED 2.5 MG/3 ML INHALATION PRN (15:06)
--- NOTE | 2024-03-20 15:23 | CT ---
EXAMINATION TYPE: CT angio chest CT DLP: 642 mGycm, Automated exposure control for dose reduction was used. DATE OF EXAM: 03/20/2024 2:41 PM COMPARISON: Chest radiograph from same day. . PET/CT 02/14/2023 CLINICAL INDICATION: Male, 63 years old with history of jose; JOSE TECHNIQUE/CONTRAST: CTA scan of the thorax is performed with IV Contrast, patient injected with 100ml mL of Isovue 370, M IP images are created and reviewed these are created on a separate workstation.. FINDINGS: Pulmonary Artery: There is no evidence for a filling defect within the pulmonary vasculature to sugge st acute pulmonary embolism. The pulmonary artery is enlarged measuring up to 40 mm. Lungs/Pleura: Moderate centrilobular emphysema changes. Stable right middle lobe 8 mm pulmonary nodul e. Prominent interstitial lung markings most pronounced in lung bases. No evidence of focal consolida tion, pleural effusion or pneumothorax. Scattered calcified pulmonary granulomas. Airway: Large airways are patent. Heart: Heart is within normal limits for size. Vasculature: No evidence of aortic aneurysm. Mediastinum: No gross evidence of adenopathy. Musculoskeletal: No acute osseous abnormalities Soft Tissues/lymph nodes: Unremarkable. Lower neck: No significant findings. 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 IMPRESSION: 1. No evidence of pulmonary embolism. 2. Pulmonary hypertension. 3. Moderate emphysema changes. 4. Stable right middle lobe 8 mm pulmonary nodule. 5. Interstitial lung disease similar to prior . [facility], , 03/20/2024 3:21 PM
[2024-03-20] MEDS ORDERED: NALOXONE 0.4 MG/ML 1 ML VIAL IVP PRN (16:23)
[2024-03-20] MEDS: methylPREDNISolone SOD SUCCI 125 MG/2 ML VIAL IV SCH (17:34)
[2024-03-20] MEDS: MAGNESIUM SULFATE-D5W PMX 1 GM in DEXTROSE/WATER 1 100ML.BAG IVPB SCH (18:15)
--- NOTE | 2024-03-20 18:37 | P.HPIM ---
History of Present Illness H&P Date: 03/20/24 History and physical Date of service 03/20/[address] Garibay. Chief complaint: Patient presented to the emergency room at [facility] emergency department with the severe shortness of breath has been progressive over the last 2 days could not breeze until he decided to come to the emergency room. History of present illness: Patient is history of COPD and emphysema has been followed by Dr. Jose Cruz Mancera pulmonary and critical care as outpatient he presented to the emergency room wit h inability to take his breath. And could not handle it at home after he has been progressed. In the ER initial respiratory rate 28 labored shallow breathing with the temperature 97.8 F oral, and his heart rate was 59, and blood pressure 170/1.6 with the hypertension uncontrolled with a mean blood pressure 140 and his oxygen saturation 78 on room air. As patient seen laboratory was obtained as well as CT scan of the chest to rule out PE with the underlying emphysema and COPD exacerbation I was called to admit the patient and we consulted the pulmonary critical care's physician Dr. Jose Cruz Mancera. Patient past history: Patient has been smoking heavily and he sometimes 2 pack/day and he had tried to quit but he failure each time and currently is pack a day and he also he drink alcohol point a day and he tried to quit but he stated that when he drinks he feels better able to breeze. Patient currently on 3 L nasal cannula. Still hypertensive we adjusted his medication. 2. He has history of neck surgery for advanced cervical degenerative disease 3. He is supposedly scheduled for back surgery for chronic back pain but the insurance denied it and Orthopedic spine surgeon [facility] has been discussing with the insurance the necessity of the surgery. 4. Hypertension with hypertensive heart disease. Allergy unknown Side chronic smoker for many years has 1 daughter. Surgical history right hip fracture and surgery on the hip done by Dr. Pérez orthopedic surgeon in [facility] and resulted in 2shorter right leg and replaced with special shoes he will to accumulated balance. Review of system Neuropsychiatry negative Cardiovascular occasional PVCs Pulmonary COPD and emphysema and chronic smoker GI no constipation or diarrhea Genitourinary mild prostatic hypertrophy Musculoskeletal advanced degenerative arthritis in the joint as well as cervical spine and the lumbosacral spine. Rest of the 14 [place] is noncontributory Physical exam: On admission his temperature was 90 7.8F oral, pulse 59 bpm regular, on admission his respiratory rate was 28/min, blood pressure 170/126 with uncontrolled hypertension and a mean blood pressure 140 Oxygen saturation on room air 78 with hypoxemia. On exam: Head and neck the head was normocephalic atraumatic pupil was equal reactive no icterus conjunctiva was pink sclera was nonicteric Oropharynx natural teeth with missing molar Hearing is normal Nose negative for rhinitis or epistaxis Neck supple no JVD no thyromegaly history of surgery for arthritis and disc disease Chest increased anteroposterior diameter with emphysema and history of chronic smoker He has bilateral history of rhonchi and wheezing has been improved with the steroid injection IV piggyback has been received Heart regular sinus rhythm with occasional PVCs. Abdomen soft nontender positive bowel sounds no nausea no vomiting no constipati on or diarrhea Extremities right leg history of right hip fracture and shorter than the left degenerative arthritis of the joint. Left leg has knee arthritis otherwise no other significant complaint he was able to walk and ambulate. He had a back pain chronically present No neurodeficit Assessment 1. Acute COPD exacerbation Hypoxemia with hypoxic respiratory failure and emphysema. Hypertension with hypertensive heart disease and the blood pressure is uncontrolled. Reviewed laboratories with the underlying macrocytosis probably secondary to his alcohol use. Advanced degenerative disc disease of the cervical spine and the back with a chronic pain syndrome he used to get his pain medication from Dr. Palomino, apparently he stated that he is changing to a different pain clinic. Hypomagnesemia Plan: 1. Consultation with the pulmonary critical care Dr. Jose Cruz Mancera 2. Patient started on steroid IV piggyback and has some feeling of effect of improvement we will continue. #3 will obtain serum folic acid and vitamin B12 with the underlying macrocytosis. 3. Patient has hypomagnesemia and received 1 g of magnesium IV piggyback and will check tomorrow CBC and BMP and magnesium. Continue the inhalation therapy the updraft nebulizers as well bronchodilator as well as a steroid. For further ordered depend on the patient condition and the recommendation the pulmonary and critical care thank you Past Medical History Past Medical History: Hypertension Additional Past Medical History / Comment(s): lower back pain History of Any Multi-Drug Resistant Organisms: None Reported Past Surgical History: Orthopedic Surgery Additional Past Surgical History / Comment(s): leg surgery Past Anesthesia/Blood Transfusion Reactions: No Reported Reaction Past Psychological History: Anxiety Smoking Status: Current every day smoker Past Alcohol Use History: Occasional Past Drug Use History: None Reported - Past Family History Father Family Medical History: Cancer Additional Family Medical History / Comment(s): Colon cancer. Mother Family Medical History: Cancer Additional Family Medical History / Comment(s): Pancreatic cancer. Medications and Allergies Home Medications Medication Instructions Recorded Confirmed Type Metoprolol Tartrate [Lopressor] 50 mg PO DAILY 04/17/22 03/20/24 History hydrALAZINE HCL 25 mg PO DAILY 04/17/22 03/20/24 History Tamsulosin HCl [Flomax] 0.4 mg PO DAILY 09/19/22 03/20/24 History Albuterol Sulfate [Ventolin HFA] 2 puff INHALATION RT-Q6H PRN 06/20/23 03/20/24 History Fluticasone/Umeclidin/Vilanter 2 puff INHALATION RT-DAILY 06/20/23 03/20/24 History [Trelegy Ellipta 100-62.5-25] oxyCODONE-APAP 10-325MG [Percocet 1 tab PO Q8H PRN 06/20/23 03/20/24 History 10-325 mg] Budesonide [Pulmicort Flexhaler] 1 puff INHALATION RT-BID 03/20/24 03/20/24 History Losartan Potassium 100 mg PO DAILY 03/20/24 03/20/24 History Nicotine 21Mg/24Hr Patch [Habitrol] 1 patch TRANSDERM DAILY 03/20/24 03/20/24 History Allergies Allergy/AdvReac Type Severity Reaction Status Date / Time No Known Allergies Allergy Verified 03/20/24 13:05 Physical Exam Vitals: Vital Signs Temp Pulse Resp BP Pulse Ox 03/20/24 17:35 87 20 159/92 98 03/20/24 17:05 74 18 186/106 98 03/20/24 16:05 76 16 150/100 96 03/20/24 14:05 74 16 170/90 96 03/20/24 13:26 80 03/20/24 13:16 77 03/20/24 13:05 81 24 165/106 78 L 03/20/24 13:02 97.8 F 59 L 17 170/126 78 L 03/20/24 13:00 28 H Intake and Output 0903/20/24 03/20/24 06:59 14:59 22:59 Other: Weight 113.398 kg Results CBC & Chem 7: 03/20/24 13:12 03/20/24 13:12 Labs: Abnormal Lab Results - Last 24 Hours (Table) 03/20/24 03/20/24 03/20/24 Range/Units 13:12 13:12 13:12 MCV 105.2 H (80.0-100.0) fL D-Dimer 1.14 H (<0.60) mg/L FEU Glucose 103 H (74-99) mg/dL Plasma Lactic Acid Saad (0.7-2.0) mmol/L Magnesium 1.3 L (1.6-2.3) mg/dL 03/20/24 03/20/24 Range/Units 13:12 16:39 MCV (80.0-100.0) fL D-Dimer (<0.60) mg/L FEU Glucose (74-99) mg/dL Plasma Lactic Acid Saad 3.0 H* 2.7 H* (0.7-2.0) mmol/L Magnesium (1.6-2.3) mg/dL
[2024-03-20] MEDS ORDERED: LORazepam 1 MG TAB PO PRN ×2 (19:54)
[2024-03-20] MEDS ORDERED: LORazepam 2 MG/ML INJ IV PRN (19:54)
[2024-03-20] MEDS: LORazepam 0.5 MG TAB PO PRN (20:03)
[2024-03-20] MEDS: hydrALAZINE HCL 25 MG TAB PO SCH (20:24)
[2024-03-20] MEDS: BUDESONIDE 1 MG/2 ML NEBU INHALATION SCH (20:28)
[2024-03-21] MEDS: METOPROLOL TARTRATE 50 MG TAB PO SCH (03:05)
[2024-03-21] MEDS: NICOTINE 21MG/24HR PATCH TRANSDERM SCH (07:56)
[2024-03-21] MEDS: LOSARTAN 50 MG TAB PO SCH (07:56)
[2024-03-21] MEDS: THIAMINE 100 MG TAB PO SCH (07:56)
[2024-03-21] MEDS: TAMSULOSIN 0.4 MG CAP.ER.24H PO SCH (07:56)
[2024-03-21] MEDS: IPRATROPIUM 0.5 MG/2.5 ML NEBU INHALATION SCH (08:12)
[2024-03-21] MEDS ORDERED: hydrALAZINE HCL 25 MG TAB PO SCH (09:00)
[2024-03-21 09:35] LABS: BUN/Creat Ratio 22.88 Ratio (12.00-20.00); Blood Urea Nitrogen 18.3 mg/dL (9.0-27.0); Calcium 9.1 mg/dL (8.7-10.3); Carbon Dioxide 19.3 mmol/L (21.6-31.8); Chloride 102 mmol/L (96-109); Glucose 146 mg/dL (70-110); Magnesium 1.7 mg/dL (1.5-2.4); Potassium 4.8 mmol/L (3.5-5.5); Sodium 135 mmol/L (135-145)
[2024-03-21 10:51] LABS: Basophils # (A) 0.01 X 10*3/uL (0.00-0.10); Basophils % (A) 0.1 %; Eosinophils # (A) 0 X 10*3/uL (0.04-0.35); Eosinophils % (A) 0 %; HCT 45.3 % (39.6-50.0); HGB 15.1 g/dL (13.0-17.0); Lymphocytes # (A) 1.02 X 10*3/uL (0.90-5.00); MCH 33.4 pg (27.0-32.0); MCHC 33.3 g/dL (32.0-37.0); MCV 100.2 FL (80.0-97.0); Mean Platelet Volume 11.7 FL (9.5-12.2); Monocytes # (A) 0.14 X 10*3/uL (0.20-1.00); Monocytes % (A) 2.1 %; NRBC Per 100 WBC 0 X 10*3/uL (0.00-0.01); Neutrophils # (A) 5.59 X 10*3/uL (1.80-7.70); Neutrophils % (A) 82.5 %; Platelet Count 153 X 10*3/uL (140-440); RBC 4.52 X 10*6/uL (4.40-5.60); RDW 14.6 % (11.5-14.5); WBC 6.78 X 10*3/uL (4.50-10.00)
--- NOTE | 2024-03-21 15:48 | P.PN ---
Subjective Progress Note Date: 03/21/24 Progress note Date of service 03/21/[address] Garibay. Patient seen and evaluated and discussed with the patient [id number]. Patient because of his habit of alcohol use and the expectation of DTs he is on CIWA protocol. Currently he did not have any confusion or disorientation but he started to have shakiness of his hand still monitoring the patient. As discussed with them the current possibility when he is off any alcohol intake. Laboratory: White count was 6.78, hemoglobin 15.1, and hematocrit 45.3, his MCV is 100.2 with the testing for vitamin B12 deficiency result is pending however folic acid deficiency was present with the folic acid level 2.5. For that purpose patient started on folic acid with vitamin C and vitamin B 1 tablet daily. On admission patient found to have lactic acidosis and today his carbon dioxide 19.3 which is indicating still in acidosis and despite the repeat lactic acid is 1.9 we will start him on small dose of bicarb 325 mg twice a day and repeat lab tomorrow for BMP and a CBC with differential. And hopefully will get the result of vitamin B12 as well Patient thinking of how can he have oxygen at home and I discussed with him he needs to be weaned off oxygen and ambulate and recheck his oxygen saturation and will be doing that tomorrow by the respiratory therapy if possible because of the indication to be 88 or below saturation for compensation with oxygen therapy Patient had a CT scan on admission with the underlying emphysematous lung and acute exacerbation of COPD he. Have any pneumonitis associated with the white count is normal. Physical exam 9 Temperature 97.7 F oral, pulse rate 68/min respiratory rate 18 to 19/min with short of breath with labored and shallow described as tachypneic and blood pressure was 199/100 with the mean blood pressure 139. Oxygen saturation on 1.5 L 100% nasal cannula. On the exam: Conscious alert oriented x 3 and mild tremors of the hand no confusion or disorientation The head was normocephalic atraumatic pupil was equal reactive conjunctiva was pink sclera was nonicteric oropharynx natural teeth Neck was supple no JVD no thyromegaly no lymphadenopathy trachea midline. Chest increased anteroposterior diameter with emphysematous and scattered rhonchi wheezes has been improved. Heart regular sinus rhythm and a blood pressure has gradually improved to 153/94 however still uncontrolled. The abdomen is soft positive bowel sound no tenderness Extremities no edema and positive pulses. Currently patient on 2 L nasal cannula with the 95% oxygen saturation. Assessment and plan 1. Acute exacerbation of COPD with the hypoxemia on admission with the oxygen saturation 78% that is on admission. 2. CT scan with contrast no evidence of PE with the underlying pulmonary hypertension as mention with the enlargement of pulmonary artery up to 40 mm with sentry lobular emphysema changes and stable right middle lobe 8 mm of pulmonary nodule. Large airway was patent. 3. Hypertension with hypertensive heart disease 4. Metabolic acidosis with lactic acidosis on admission. 5. Alcohol use disorder. 6. Folic acid deficiency with macrocytosis. 7. Hypomagnesemia on admission supplemented 8. Currently on steroid and we decreased maintenance dose to 40 mg IV piggyback every 6 hour 9. We consulted Dr. Jose Cruz Mancera his primary pulmonary and critical care physician. 10. Will check tomorrow after walking and exercise and without oxygen to evaluate desaturation and the need of home oxygen. Will obtain echocardiogram to evaluate the pulmonary hypertension. Objective - Vital Signs Vital signs: Vital Signs Temp 97.7 F 03/21/24 07:50 Pulse 90 03/21/24 15:07 Resp 16 03/21/24 15:07 BP 199/109 03/21/24 07:50 Pulse Ox 100 03/21/24 07:50 FiO2 Intake & Output 03/20/24 03/21/24 03/21/24 18:59 06:59 18:59 Weight 113.398 kg 113.398 kg Other: # Voids 1 # Bowel Movements 1 - Labs CBC & Chem 7: 03/21/24 05:36 03/21/24 05:36 Labs: Abnormal Lab Results - Last 24 Hours (Table) 03/20/24 03/20/24 03/21/24 Range/Units 16:39 19:30 05:36 MCV 100.2 H (80.0-97.0) FL MCH 33.4 H (27.0-32.0) pg RDW 14.6 H (11.5-14.5) % Monocytes # 0.14 L (0.20-1.00) X 10*3/uL Eosinophils # 0 L (0.04-0.35) X 10*3/uL Carbon Dioxide (21.6-31.8) mmol/L Anion Gap (4.00-12.00) mmol/L BUN/Creatinine Ratio (12.00-20.00) Ratio Glucose (70-110) mg/dL Plasma Lactic Acid Saad 2.7 H* 2.2 H* (0.7-2.0) mmol/L Folate (4.40-31.00) ng/mL 03/21/24 03/21/24 Range/Units 05:36 05:36 MCV (80.0-97.0) FL MCH (27.0-32.0) pg RDW (11.5-14.5) % Monocytes # (0.20-1.00) X 10*3/uL Eosinophils # (0.04-0.35) X 10*3/uL Carbon Dioxide 19.3 L (21.6-31.8) mmol/L Anion Gap 13.70 H (4.00-12.00) mmol/L BUN/Creatinine Ratio 22.88 H (12.00-20.00) Ratio Glucose 146 H (70-110) mg/dL Plasma Lactic Acid Saad (0.7-2.0) mmol/L Folate 2.50 L (4.40-31.00) ng/mL
[2024-03-21] MEDS: methylPREDNISolone SOD SUCCI 40 MG/ML 1 ML VIAL IV SCH (18:02)
[2024-03-21] MEDS: FOLIC ACID-VIT B COMPLEX-VIT C 1 CAP PO SCH (18:02)
[2024-03-21] MEDS: LORazepam 1 MG TAB PO PRN (18:08)
[2024-03-21] MEDS: SODIUM BICARBONATE TAB 650 MG TAB PO SCH (20:02)
[2024-03-22 09:00] LABS: HCT 42.2 % (39.6-50.0); HGB 14.1 g/dL (13.0-17.0); MCH 33.9 pg (27.0-32.0); MCHC 33.4 g/dL (32.0-37.0); MCV 101.4 FL (80.0-97.0); NRBC Per 100 WBC 0 X 10*3/uL (0.00-0.01); Platelet Count 144 X 10*3/uL (140-440); RBC 4.16 X 10*6/uL (4.40-5.60); RDW 14.7 % (11.5-14.5); WBC 10.47 X 10*3/uL (4.50-10.00)
[2024-03-22 09:01] LABS: Basophils # (A) 0.01 X 10*3/uL (0.00-0.10); Basophils % (A) 0.1 %; Eosinophils # (A) 0 X 10*3/uL (0.04-0.35); Eosinophils % (A) 0 %; Lymphocytes % (A) 8.6 %; Monocytes # (A) 0.61 X 10*3/uL (0.20-1.00); Monocytes % (A) 5.8 %; Neutrophils # (A) 8.87 X 10*3/uL (1.80-7.70); Neutrophils % (A) 84.7 %
[2024-03-22 09:12] LABS: Calcium 8.8 mg/dL (8.7-10.3); Carbon Dioxide 20.9 mmol/L (21.6-31.8); Chloride 104 mmol/L (96-109); Glucose 107 mg/dL (70-110); Magnesium 1.8 mg/dL (1.5-2.4); Potassium 4.6 mmol/L (3.5-5.5); Sodium 136 mmol/L (135-145)
--- NOTE | 2024-03-22 10:56 | P.CNPUL ---
History of Present Illness Consult date: 03/21/24 Reason for consult: dyspnea, COPD, hypoxemia, abnormal CXR/CT Chief complaint: Shortness of breath History of present illness: 63-year-old male seen evaluate examined on medical floor, patient has a longstanding history of smoking and nicotine use as well as COPD patient has been short of breath for several weeks symptoms are progressive along with progressive dyspnea on exertion, decided to come into the hospital for further evaluation and intervention, on arrival oxygen saturation is 78% he was hypertensive with blood pressure 170/126 tachypneic with respiratory rate of 28. His labs were significant for white cell count of 6.7, hemoglobin hematocrit remained within normal limit lactic acid is 2.2 subsequently came down, BUN/creatinine is 18/0.8, chest x-ray COPD like changes, CT scan of the chest negative for PE, right middle lobe nodule 8 mm interstitial lung disease essentially unchanged His past medical history significant hypertension hypertensive cardiovascular disease, BPH, COPD, chronic pain syndrome due to low back pain, smoking and nicotine use. Currently patient is on antihypertensive agent with metoprolol as well as hydralazine with losartan, tamsulosin for BPH, Trelegy and Ventolin HFA for COPD home, medication at currently nebulizer with Pulmicort as well as Ventolin, and ipratropium, Solu-Medrol 40 mg IV every 6, continuation of home medicine as well as Ativan and nicotine patch Review of Systems All systems: negative Past Medical History Past Medical History: Hypertension Additional Past Medical History / Comment(s): lower back pain History of Any Multi-Drug Resistant Organisms: None Reported Past Surgical History: Orthopedic Surgery Additional Past Surgical History / Comment(s): leg surgery Past Anesthesia/Blood Transfusion Reactions: No Reported Reaction Past Psychological History: Anxiety Smoking Status: Former smoker Past Alcohol Use History: Occasional Additional Past Alcohol Use History / Comment(s): Has been a smoker for 40 yrs, since January 2022 cut down to <10 cigarettes per day, was up to 4 ppd. Drinks 1 quart of whiskey per day. Past Drug Use History: None Reported Additional Drug Use History / Comment(s): Marijuana use couple times a week. pt aware no alcohol or marijauna 24 hrs before procedure. Reports quitting smoking 06/16/23 and using vape - Past Family History Father Family Medical History: Cancer Additional Family Medical History / Comment(s): Colon cancer. Mother Family Medical History: Cancer Additional Family Medical History / Comment(s): Pancreatic cancer. Medications and Allergies Home Medications Medication Instructions Recorded Confirmed Type Metoprolol Tartrate [Lopressor] 50 mg PO DAILY 04/17/22 03/20/24 History hydrALAZINE HCL 25 mg PO DAILY 04/17/22 03/20/24 History Tamsulosin HCl [Flomax] 0.4 mg PO DAILY 09/19/22 03/20/24 History Albuterol Sulfate [Ventolin HFA] 2 puff INHALATION RT-Q6H PRN 06/20/23 03/20/24 History Fluticasone/Umeclidin/Vilanter 2 puff INHALATION RT-DAILY 06/20/23 03/20/24 History [Trelegy Ellipta 100-62.5-25] oxyCODONE-APAP 10-325MG [Percocet 1 tab PO Q8H PRN 06/20/23 03/20/24 History 10-325 mg] Budesonide [Pulmicort Flexhaler] 1 puff INHALATION RT-BID 03/20/24 03/20/24 History Losartan Potassium 100 mg PO DAILY 03/20/24 03/20/24 History Nicotine 21Mg/24Hr Patch [Habitrol] 1 patch TRANSDERM DAILY 03/20/24 03/20/24 History Allergies Allergy/AdvReac Type Severity Reaction Status Date / Time No Known Allergies Allergy Verified 03/20/24 13:05 Physical Exam Vitals: Vital Signs Temp Pulse Pulse Resp BP BP Pulse Ox 03/21/24 15:07 90 16 03/21/24 14:58 94 16 03/21/24 13:00 98.0 F 103 H 16 142/81 99 03/21/24 11:14 69 16 03/21/24 11:07 64 16 03/21/24 08:22 68 18 03/21/24 08:12 66 18 03/21/24 08:00 68 18 03/21/24 07:50 97.7 F 68 19 199/109 100 03/21/24 07:29 60 20 110/68 95 03/21/24 06:00 74 17 153/94 95 03/21/24 04:14 74 16 167/95 97 03/21/24 02:43 98.5 F 80 18 190/108 97 03/21/24 01:21 90 18 175/92 98 03/20/24 21:29 86 18 184/97 98 03/20/24 20:37 79 03/20/24 20:28 75 03/20/24 20:24 75 18 191/101 99 03/20/24 19:46 74 18 180/108 98 03/20/24 17:35 87 20 159/92 98 Intake and Output 03/21/24 03/21/24 03/21/24 06:59 14:59 22:59 Other: # Voids 1 1 # Bowel Movements 1 Weight 113.398 kg - Constitutional General appearance: average body habitus, disheveled - EENT Eyes: EOMI, PERRLA ENT: normal oropharynx - Neck Neck: normal ROM Carotids: bilateral: upstroke normal - Respiratory Respiratory: bilateral: diminished - Cardiovascular Rhythm: regular Heart sounds: normal: S1, S2 - Gastrointestinal General gastrointestinal: soft - Integumentary Integumentary: normal turgor - Neurologic Neurologic: CNII-XII intact - Musculoskeletal Musculoskeletal: gait normal, generalized weakness, strength equal bilaterally - Psychiatric Psychiatric: A&O x's 3, appropriate affect, intact judgment & insight Results - Laboratory Findings CBC and BMP: 03/22/24 03:10 03/22/24 03:10 PT/INR, D-dimer PT 11.5 sec (10.0-12.5) 03/20/24 13:12 INR 1.1 (<1.2) 03/20/24 13:12 D-Dimer 1.14 mg/L FEU (<0.60) H 03/20/24 13:12 Abnormal lab findings: Abnormal Labs 03/20/24 03/20/24 03/20/24 13:12 13:12 13:12 MCV 105.2 H MCH RDW Monocytes # Eosinophils # D-Dimer 1.14 H Carbon Dioxide Anion Gap BUN/Creatinine Ratio Glucose 103 H Plasma Lactic Acid Saad Magnesium 1.3 L Folate 03/20/24 03/20/24 03/20/24 13:12 16:39 19:30 MCV MCH RDW Monocytes # Eosinophils # D-Dimer Carbon Dioxide Anion Gap BUN/Creatinine Ratio Glucose Plasma Lactic Acid Saad 3.0 H* 2.7 H* 2.2 H* Magnesium Folate 03/21/24 03/21/24 03/21/24 05:36 05:36 05:36 MCV 100.2 H MCH 33.4 H RDW 14.6 H Monocytes # 0.14 L Eosinophils # 0 L D-Dimer Carbon Dioxide 19.3 L Anion Gap 13.70 H BUN/Creatinine Ratio 22.88 H Glucose 146 H Plasma Lactic Acid Saad Magnesium Folate 2.50 L - Diagnostic Findings Chest x-ray: report reviewed, image reviewed CT scan - chest: report reviewed, image reviewed Assessment and Plan Assessment: Acute hypoxic respiratory failure due to acute COPD exacerbation on supplemental oxygen gradually being titrated down Acute COPD exacerbation on bronchodilator IV steroids 8 mm right middle lobe nodule Hypertensive urgency Active smoker continued nicotine use Plan: Continue bronchodilators IV steroids and breathing treatments Right middle/lower lobe nodule 8 mm in size to be worked up on outpatient basis with follow-up CAT scan and likely a PET scan COPD evaluation management, will be continued as outpatient with PFTs close monitoring follow-up Continue antihypertensive agent Patient to be assessed for home oxygen at the time of discharge with home oxygen assessment Time with Patient: Greater than 30
--- NOTE | 2024-03-22 10:59 | CA ---
Transthoracic Echo Report Name: Robert Preston Age: 63 Gender: M : 1960 Exam Date: 03/22/2024 07:54 Exam Location: [place] [facility] Ht (in): 79 Wt (lb): 250 Ordering Physician: Teo Garibay MD Attending/Referring Phys: Maintenance Custodian Ara Solis RDCS Procedure CPT: Indications: For evaluation of pulmonary hypertension Cardiac Hx: Technical Quality: Good Contrast 1: Total Dose (mL): Contrast 2: Total Dose (mL): MEASUREMENTS (Male / Female) Normal Values 2D ECHO LV Diastolic Diameter PLAX 3.8 cm 4.2 - 5.9 / 3.9 - 5.3 cm LV Systolic Diameter PLAX 3.0 cm IVS Diastolic Thickness 1.9 cm 0.6 - 1.0 / 0.6 - 0.9 cm LVPW Diastolic Thickness 1.6 cm 0.6 - 1.0 / 0.6 - 0.9 cm LV Relative Wall Thickness 0.9 RV Internal Dim ED PLAX 4.0 cm LA Systolic Diameter LX 4.4 cm 3.0 - 4.0 / 2.7 - 3.8 cm LV Diastolic Volume MOD BP 86.5 cm??? 67 - 155 / 56 - 104 cm??? LV Systolic Volume MOD BP 58.6 cm??? 22 - 58 / 19 - 49 cm??? LV Ejection Fraction MOD BP 32.3 % >= 55 % LV Cardiac Index MOD BP 1105.4 cm???/min???m??? LV Diastolic Volume MOD 4C 132.0 cm??? LV Systolic Volume MOD 4C 64.7 cm??? LV Ejection Fraction MOD 4C 51.0 % LV Cardiac Index MOD 4C 2662.3 cm???/min???m??? LV Diastolic Length 4C 8.1 cm LV Systolic Length 4C 7.5 cm LV Diastolic Volume MOD 2C 113.8 cm??? LV Systolic Volume MOD 2C 58.9 cm??? LV Ejection Fraction MOD 2C 48.2 % LV Cardiac Index MOD 2C 2171.1 cm???/min???m??? LV Diastolic Length 2C 8.8 cm LV Systolic Length 2C 7.2 cm LA Volume 90.0 cm??? 18 - 58 / 22 - 52 cm??? LA Volume Index 35.6 cm???/m??? 16 - 28 cm???/m??? M-MODE Aortic Root Diameter MM 4.2 cm AV Cusp Separation MM 2.3 cm DOPPLER AV Peak Velocity 183.4 cm/s AV Peak Gradient 13.5 mmHg AV Mean Velocity 117.3 cm/s AV Mean Gradient 6.5 mmHg AV Velocity Time Integral 32.3 cm AI Peak Velocity 449.5 cm/s AI Peak Gradient 80.8 mmHg AI Pressure Half Time 621.8 ms MV Area PHT 4.4 cm??? Mitral E Point Velocity 62.2 cm/s Mitral A Point Velocity 89.4 cm/s Mitral E to A Ratio 0.7 MV Deceleration Time 172.4 ms TR Peak Velocity 368.1 cm/s TR Peak Gradient 54.2 mmHg Right Ventricular Systolic Press 59.2 mmHg FINDINGS Left Ventricle Left ventricular ejection fraction is estimated at 60-65%. Severely increased septal wall thickness. Hyperdynamic left ventricular systolic function. Right Ventricle Severe right ventricular dilatation. Severe pulmonary hypertension. Right ventricular systolic pressure estimated at 58 mm hg. Right Atrium Mild right atrial dilatation. No right atrial thrombus or mass seen. Left Atrium Mildly increased left atrial diameter. Moderately increased left atrial volume. Mildly increased left atrial area. No left atrial thrombus or mass present. Mitral Valve Mitral valve thickened. Mild mitral annular calcification. Aortic Valve Trileaflet aortic valve. Thickened aortic valve without stenosis. Mild aortic regurgitation. Tricuspid Valve Structurally normal tricuspid valve. Mild tricuspid regurgitation. Pulmonic Valve Structurally normal pulmonic valve. Trace pulmonic regurgitation. Pericardium No pericardial or pleural effusion. Aorta Moderate aortic dilatation at the level of the sinuses of valsalva 42 mm CONCLUSIONS Normal LV function Moderate to severe pulmonary hypertension Mild tricuspid regurgitation Mild aortic regurgitation Mildly dilated aortic root Previewed by: Dr. Naveen Perry MD (Electronically Signed) Final Date: 22 March 2024 10:58
--- NOTE | 2024-03-22 11:00 | P.PN ---
Subjective Progress Note Date: 03/22/24 Principal diagnosis: Acute hypoxic respiratory failure due to acute COPD exacerbation on supplemental oxygen gradually being titrated down Acute COPD exacerbation on bronchodilator IV steroids 8 mm right middle lobe nodule Hypertensive urgency Active smoker continued nicotine use March 22, 2024, patient seen eval examined during rounds labs reviewed medications and care plan discussed, patient slightly less short of breath, oxygen saturation improved to 98% on room air patient off oxygen, on IV steroids bronchodilators, blood pressure improved to 165/84 63-year-old male seen evaluate examined on medical floor, patient has a longstanding history of smoking and nicotine use as well as COPD patient has been short of breath for several weeks symptoms are progressive along with progressive dyspnea on exertion, decided to come into the hospital for further evaluation and intervention, on arrival oxygen saturation is 78% he was hypertensive with blood pressure 170/126 tachypneic with respiratory rate of 28. His labs were significant for white cell count of 6.7, hemoglobin hematocrit remained within normal limit lactic acid is 2.2 subsequently came down, BUN/c reatinine is 18/0.8, chest x-ray COPD like changes, CT scan of the chest negative for PE, right middle lobe nodule 8 mm interstitial lung disease essentially unchanged His past medical history significant hypertension hypertensive cardiovascular disease, BPH, COPD, chronic pain syndrome due to low back pain, smoking and nicotine use. Currently patient is on antihypertensive agent with metoprolol as well as hydralazine with losartan, tamsulosin for BPH, Trelegy and Ventolin HFA for COPD home, medication at currently nebulizer with Pulmicort as well as Ventolin, and ipratropium, Solu-Medrol 40 mg IV every 6, continuation of home medicine as well as Ativan and nicotine patch Objective - Vital Signs Vital signs: Vital Signs Temp 98.5 F 03/22/24 07:26 Pulse 93 03/22/24 07:26 Resp 16 03/22/24 07:26 BP 165/84 03/22/24 07:26 Pulse Ox 98 03/22/24 07:26 FiO2 Intake & Output 03/21/24 03/22/24 03/22/24 18:59 06:59 18:59 Weight 113.398 kg Other: Voiding Method Toilet # Voids 1 - Exam - Constitutional General appearance: average body habitus, disheveled - EENT Eyes: EOMI, PERRLA ENT: normal oropharynx - Neck Neck: normal ROM Carotids: bilateral: upstroke normal - Respiratory Respiratory: bilateral: diminished - Cardiovascular Rhythm: regular Heart sounds: normal: S1, S2 - Gastrointestinal General gastrointestinal: soft - Integumentary Integumentary: normal turgor - Neurologic Neurologic: CNII-XII intact - Musculoskeletal Musculoskeletal: gait normal, generalized weakness, strength equal bilaterally - Psychiatric Psychiatric: A&O x's 3, appropriate affect, intact judgment & insight - Labs CBC & Chem 7: 03/22/24 03:10 03/22/24 03:10 Labs: Abnormal Lab Results - Last 24 Hours (Table) 03/21/24 03/22/24 03/22/24 Range/Units 05:36 03:10 03:10 WBC 10.47 H (4.50-10.00) X 10*3/uL RBC 4.16 L (4.40-5.60) X 10*6/uL MCV 101.4 H (80.0-97.0) FL MCH 33.9 H (27.0-32.0) pg RDW 14.7 H (11.5-14.5) % Immature Gran # 0.08 H (0.00-0.04) X 10*3/uL Neutrophils # 8.87 H (1.80-7.70) X 10*3/uL Eosinophils # 0 L (0.04-0.35) X 10*3/uL Carbon Dioxide 20.9 L (21.6-31.8) mmol/L BUN/Creatinine Ratio 30.00 H (12.00-20.00) Ratio Folate 2.50 L (4.40-31.00) ng/mL Assessment and Plan Assessment: Acute hypoxic respiratory failure due to acute COPD exacerbation on supplemental oxygen gradually being titrated down Acute COPD exacerbation on bronchodilator IV steroids 8 mm right middle lobe nodule Hypertensive urgency Active smoker continued nicotine use Plan: Continue bronchodilators IV steroids and breathing treatments will continue IV steroids till the time of discharge can be changed to Medrol Dosepak Right middle/lower lobe nodule 8 mm in size to be worked up on outpatient basis with follow-up CAT scan and likely a PET scan COPD evaluation management, will be continued as outpatient with PFTs close monitoring follow-up Continue antihypertensive agent Patient to be assessed for home oxygen at the time of discharge with home oxygen assessment Time with Patient: Greater than 30
--- NOTE | 2024-03-22 13:44 | P.DS ---
Providers Date of admission: 03/20/24 16:23 Attending physician: Teo Garibay Consults: 03/20/24 16:23 Consult Physician Routine Consulting Provider: Jose Cruz Mancera Reason/Comments: dyspnea Do you want consulting provider notified?: Yes Primary care physician: Teo Garibay Discharge summary Date of service 03/22/[address] Garibay. Final diagnosis: 1. Acute hypoxic respiratory failure with the shortness of breath and oxygen 78 on admission to the ER 2. Acute exacerbation of COPD 3. Emphysematous lung with the desaturation with exertion went down to 82 with the supplementation of 2 L nasal cannula prior to discharge 4. Metabolic acidosis mild with improvement with the sodium bicarb 325 mg twice a day will be reviewed as outpatient but will continue the current dose 5. Hypertension with hypertensive heart disease adjusted medication. 6. Mild elevation of D-dimer which is followed by CT scan of the chest angiogram negative for PE. 7. Chronic use of cigarette and nicotine 8. 8 mm right mid lobe nodule to be followed by Dr. Jose Cruz Mancera pulmonary as outpatient. 9. Cessation of smoking 10. Cessation of chronic alcohol use. Consultation with pulmonary and critical care Dr. Jose Cruz Mancera who will be following him as outpatient for for further evaluation and investigation ER presentation with the severe shortness of breath found to be hypoxic and subsequently admitted with the underlying wheezes has been improved with the bronchodilator and steroid for a short day and recover with the no need for chronic steroid at this time as he is having inhalation steroid On discharge: His vital sign today on discharge temperature 98.5 F oral heart rate 93/min respiratory rate 16 and blood pressure 165/84 with the mean blood pressure 111 and oxygen saturation on 2 L nasal cannula 98% and when he exercise with walking without the oxygen his oxygen saturation down to 82%. Head was normocephalic atraumatic and pupil with equal reactive, normal hearing, oropharynx negative with natural teeth able to eat and swallow Neck was supple no JVD no thyromegaly no lymphadenopathy trachea midline Chest increased anteroposterior diameter with significant improvement no wheezes no rales with decreased air entry on the basis Heart regular sinus rhythm with the underlying hypertension has been improving gradually with the change of his medication and will follow as outpatient Abdomen soft positive bowel sounds no organ enlargement extremities Extremities no edema positive pulses and ambulatory. Assessment and plan Patient will be discharged home today followed as outpatient and 2 to 3 days and for third evaluation He will be on oxygen before he discharged today and will continue current treatment and prescription was given to [facility] and med rec has been counseled patient also receiving nebulizer and medication for DuoNeb for 3 times a day or every 8 hours. He will be followed by Dr. Jose Cruz Mancera pulmonary and critical care. As outpatient in 1 week. Patient Condition at Discharge: Serious Plan - Discharge Summary Discharge Rx Participant: Yes New Discharge Prescriptions: New Sodium Bicarbonate Tab 325 mg PO BID #60 tab hydrALAZINE HCL [Apresoline] 25 mg PO QID #120 tab Folic Acid-Vit B Complex-Vit C [Nephrocaps] 1 each PO DAILY #30 cap Albuterol Nebulized [Ventolin Nebulized] 2.5 mg INHALATION Q8H #90 ml Thiamine [Vitamin B-1] 100 mg PO DAILY #30 tab Continue Tamsulosin HCl [Flomax] 0.4 mg PO DAILY Fluticasone/Umeclidin/Vilanter [Trelegy Ellipta 100-62.5-25] 2 puff INHALATION RT-DAILY Losartan Potassium 100 mg PO DAILY Nicotine 21Mg/24Hr Patch [Habitrol] 1 patch TRANSDERM DAILY #30 patch Albuterol Sulfate [Ventolin HFA] 2 puff INHALATION RT-Q6H PRN PRN Reason: Shortness Of Breath Or Wheezing Budesonide [Pulmicort Flexhaler] 1 puff INHALATION RT-BID Discontinued hydrALAZINE HCL 25 mg PO DAILY No Action Metoprolol Tartrate [Lopressor] 50 mg PO DAILY oxyCODONE-APAP 10-325MG [Percocet 10-325 mg] 1 tab PO Q8H PRN PRN Reason: Pain Discharge Medication List Metoprolol Tartrate [Lopressor] 50 mg PO DAILY 04/17/22 [History] Tamsulosin HCl [Flomax] 0.4 mg PO DAILY 09/19/22 [History] Albuterol Sulfate [Ventolin HFA] 2 puff INHALATION RT-Q6H PRN 06/20/23 [History] Fluticasone/Umeclidin/Vilanter [Trelegy Ellipta 100-62.5-25] 2 puff INHALATION RT-DAILY 06/20/23 [History] oxyCODONE-APAP 10-325MG [Percocet 10-325 mg] 1 tab PO Q8H PRN 06/20/23 [History] Budesonide [Pulmicort Flexhaler] 1 puff INHALATION RT-BID 03/20/24 [History] Losartan Potassium 100 mg PO DAILY 03/20/24 [History] Albuterol Nebulized [Ventolin Nebulized] 2.5 mg INHALATION Q8H #90 ml 03/22/24 [Rx] Folic Acid-Vit B Complex-Vit C [Nephrocaps] 1 each PO DAILY #30 cap 03/22/24 [Rx] Nicotine 21Mg/24Hr Patch [Habitrol] 1 patch TRANSDERM DAILY #30 patch 03/22/24 [Rx] Sodium Bicarbonate Tab 325 mg PO BID #60 tab 03/22/24 [Rx] Thiamine [Vitamin B-1] 100 mg PO DAILY #30 tab 03/22/24 [Rx] hydrALAZINE HCL [Apresoline] 25 mg PO QID #120 tab 03/22/24 [Rx] Follow up Appointment(s)/Referral(s): Jose Cruz Mancera MD [STAFF PHYSICIAN] - 1 Week Teo Garibay MD [Primary Care Provider] - 1-2 days Discharge Disposition: HOME SELF-CARE
[2024-03-22 14:00] VITALS: BP 138/79; PULSE 80; RESP 18; TEMP 97.5
[2024-03-22] MEDS ORDERED: IPRATROPIUM-ALBUTEROL 3 ML NEB INHALATION SCH (20:00)
== END 2024-03-22 15:18 | disposition home or self-care (01) ==
LOC: EC 12:56 → 4SSUR 16:23
PROVIDERS: ADMIT Internal Medicine; ATTEND Internal Medicine
DX: J44.1 Chronic obstructive pulmonary disease with (acute) exacerbation (principal); J96.01 Acute respiratory failure with hypoxia; I16.0 Hypertensive urgency; R91.1 Solitary pulmonary nodule; I11.9 Hypertensive heart disease without heart failure; E87.29 Other acidosis; E53.8 Deficiency of other specified B group vitamins; D75.89 Other specified diseases of blood and blood-forming organs; I49.3 Ventricular premature depolarization; N40.0 Benign prostatic hyperplasia without lower urinary tract symptoms; G89.4 Chronic pain syndrome; F41.9 Anxiety disorder, unspecified; E83.42 Hypomagnesemia; F17.210 Nicotine dependence, cigarettes, uncomplicated; M50.30 Other cervical disc degeneration, unspecified cervical region; M19.90 Unspecified osteoarthritis, unspecified site; Z79.51 Long term (current) use of inhaled steroids; Z79.899 Other long term (current) drug therapy
CPT/HCPCS: 36415; 71046; 71275; 80048; 80053; 82607; 82746; 83605; 83735; 83880; 84484; 85025; 85379; 85610; 85730; 87636; 93005; 93306; 94640; 96365; 96366; 96375; 96376; 99285